=== PATIENT | female | born 1945 | race Caucasian/White ===

== ENCOUNTER → 2016-06-13 | Outpatient (CLI) | payer OTHER, BC ==
[~2016-06-13] MED LIST: ASPCH81 PO; METO50TA7 PO; PXLUNK
--- NOTE | 2016-06-13 12:41 | MAMMOGRAPHY REPORT ---
BILATERAL DIGITAL SCREENING MAMMOGRAM WITH CAD: 06/13/2016 TECHNIQUE: Current study was also evaluated with a Computer Aided Detection (CAD) system. Bilatera l CC and MLO views were obtained. COMPARISON: Comparison is made to exams dated: 06/05/2014 mammogram, 05/24/2012 mammogram, 06/09/2015 ma mmogram, 05/30/2013 mammogram, 05/19/2011 mammogram, and 05/17/2010 mammogram - [facility] enter. BREAST COMPOSITION: There are scattered areas of fibroglandular density in both breasts. FINDINGS: No suspicious masses, calcifications, or areas of architectural distortion are noted in e ither breast. There has been no significant interval change compared to prior exams. IMPRESSION: ACR BI-RADS CATEGORY 1: NEGATIVE There is no mammographic evidence of malignancy. A 1 year screening mammogram is recommended. The p atient will receive written notification of the results. Approximately 10% of breast cancers are not detected with mammography. A negative mammographic repor t should not delay biopsy if a clinically suggestive mass is present. Debbie Rust M.D. ah/:06/13/2016 12:25:19 Dramatic Agent: Juana HANCOCK(R)(M), [facility] letter sent: Normal 1/2 BI-RADS Code: ACR BI-RADS Category 1: Negative
== END | disposition home or self-care (01) ==
LOC: C.MAMM 08:50
PROVIDERS: ATTEND Obstetrics & Gynecology
DX: Z12.31 Encounter for screening mammogram for malignant neoplasm of breast (principal)

== ENCOUNTER → 2016-07-01 | Outpatient (CLI) | payer OTHER, BC | END | disposition home or self-care (01) | LOC: C.PAPS 15:45 | PROVIDERS: ATTEND Obstetrics & Gynecology | DX: Z01.419 Encounter for gynecological examination (general) (routine) without abnormal findings (principal) ==

== ENCOUNTER → 2017-04-21 | Outpatient (CLI) | payer OTHER, BC ==
[~2017-04-21] MED LIST changes: +OPTIRAY 320 IV PRN
--- NOTE | 2017-04-21 15:04 | DIAGNOSTIC IMAGING REPORT ---
ABD/PELVIS IV AND ORAL CONT CLINICAL HISTORY: 71 years-old Female presenting with MASS IN RIGHT LOWER ABDOMEN. TECHNIQUE: Multidetector CT of the abdomen and pelvis was performed after the administration of oral and intravenous contrast. IV contrast: 93 mL of Optiray 320. A dose lowering technique was used consistent with the principles of ALARA (as low as reasonably achievable). COMPARISON: None. CT DOSE (mGy.cm): The estimated cumulative dose is 272.20 mGy.cm. FINDINGS: Boiler Coverer Helper topogram: Unremarkable. Lung bases: Minimal basilar opacities, likely atelectasis. Normal heart size. No pericardial or pleural effusion. Liver: Normal morphology. Multiple well-defined hypodensities throughout the liver most compatible with hepatic cysts or hamartomas. Biliary: No intrahepatic or extrahepatic biliary ductal dilatation. Normal gallbladder. Pancreas: Normal. Spleen: Normal. Adrenal glands: Normal. Kidneys and ureters: Normal. No hydronephrosis. Bladder: Normal. Pelvic organs: Massively enlargement of the of the bilateral ovaries with multilobular solid and cystic masses. This exerts mass effect on the bladder and transiting sigmoid colon. The uterus is poorly delineated. Prominence of uterine and ovarian vasculature with dilatation of the gonadal veins. Bowel: Moderate stool burden in the transverse and right colon. The sigmoid colon is narrowed secondary to the large pelvic masses. These may involve the serosa of the sigmoid. No complete bowel obstruction. Small duodenal diverticulum at the pancreatic head suspected. Peritoneal cavity: Small amount of abdominal pelvic ascites. Evidence of peritoneal thickening and enhancement in the pelvis. Mild mesenteric infiltration. Infiltration of the liver hilum. No gross nodularity of the omentum. No free intraperitoneal gas. Lymph nodes: No enlarged lymph nodes in the abdomen or pelvis. Vasculature: Atherosclerosis of the normal caliber abdominal aorta. IVC patent. Abdominal wall: Normal. Musculoskeletal: Normal. IMPRESSION: 1. Large ovarian/pelvic masses consistent with ovarian malignancy. Peritoneal fluid, thickening, enhancement in the pelvis consistent with peritoneal carcinomatosis. No lymphadenopathy. 2. Hypodensities in the liver most consistent with hamartomas are hepatic cysts. No convincing evidence of metastatic disease to the solid viscera. The report will be called/faxed according to standard departmental protocol. Electronically signed by: Sancho Ascencio M.D. 04/21/2017 3:03 PM Dictated Date/Time: 04/21/2017 2:51 PM
== END | disposition home or self-care (01) ==
LOC: C.CTS 14:03
PROVIDERS: ATTEND Family Medicine
DX: R19.00 Intra-abdominal and pelvic swelling, mass and lump, unspecified site (principal); N83.9 Noninflammatory disorder of ovary, fallopian tube and broad ligament, unspecified; K76.9 Liver disease, unspecified

== ENCOUNTER → 2017-04-25 | Outpatient (CLI) | payer OTHER, BC ==
[~2017-04-25] MED LIST changes: -OPTIRAY 320 IV PRN
[2017-04-25 09:58] LABS: HEMATOCRIT 40.2 % (37-47); MEAN CELL VOLUME 98.8 fL (80-100); MEAN CORPUSCULAR HEMOGLOBIN 31.9 pg (25-34); MEAN CORPUSCULAR HGB CONC 32.3 g/dl (32-36); MEAN PLATELET VOLUME 9.9 fL (7.4-10.4); PLATELET COUNT 300 K/uL (130-400); RED BLOOD COUNT 4.07 M/uL (4.2-5.4); WHITE BLOOD COUNT 6.85 K/uL (4.8-10.8)
[2017-04-25 10:11] LABS: ALT/SGPT 58 U/L (12-78); AST/SGOT 47 U/L (15-37); BLOOD UREA NITROGEN 14 mg/dl (7-18); BUN/CREATININE RATIO 22.3 (10-20); CALCIUM 9.1 mg/dl (8.5-10.1); CARBON DIOXIDE 31 mmol/L (21-32); CHLORIDE 105 mmol/L (98-107); CREATININE 0.61 mg/dl (0.60-1.20); GLUCOSE 87 mg/dl (70-99); POTASSIUM 4.6 mmol/L (3.5-5.1); SODIUM 139 mmol/L (136-145)
[2017-04-25 10:14] LABS: ALB/GLOB RATIO 0.9 (0.9-2); ALKALINE PHOSPHATASE 63 U/L (45-117)
== END | disposition home or self-care (01) ==
LOC: C.LAB 09:16
PROVIDERS: ATTEND Obstetrics & Gynecology
DX: R14.0 Abdominal distension (gaseous) (principal); R93.5 Abnormal findings on diagnostic imaging of other abdominal regions, including retroperitoneum

== ENCOUNTER 2017-06-22 08:10 | Day surgery (SDC) | payer OTHER, BC ==
[2017-06-14 15:16] VITALS: BMI 19.0
[~2017-06-22] VITALS: Ht 167.6 cm; Wt 55.5 kg
[~2017-06-22 08:10] MED LIST changes: +ASCO100T4 PO; -ASPCH81 PO; +ASTRAGALUS PO; +B-COTAB18 PO; +BLACK COHOSH PO; +CALCIUM CARBONATE PO; +CHOL1000 PO; +COD1000C PO; +COLLAGEN PO; +GLUCTAB7 PO; +HYALURONIC ACID PO; +LACTATED RINGER'S 1000ML 1,000 ML IV SCH; +LYSI1TAB2 PO; +MAGNESIUM SULFATE PO; -METO50TA7 PO; +MISCCAP80 PO; +OMEG10007 PO; +PHYT100T PO; -PXLUNK; +SELENIUM PO; +VITA400C28 PO; +[UNRECOGNIZED DRUG - CODE] PEG; +[UNRECOGNIZED DRUG - CODE] TP; +[UNRECOGNIZED DRUG - OTHER] PO
[2017-06-22] MEDS ORDERED: BLACK CURRENT SEED (08:42)
[2017-06-22 08:46] VITALS: BP 109/70; PULSE 88; TEMP 37; O2SAT 98; Ht 167.6 cm; Wt 55.5 kg
--- NOTE | 2017-06-22 09:45 | History & Physical Bridge Note ---
H&P Re-Evaluation Bridge Note: I have examined the patient, reviewed the History & Physical and in the interval since the performance of the History & Physical I have noted the following changes of clinical significance: No changes noted SO at bedside all questions answered pt is right handed
[2017-06-22] MEDS ORDERED: BACITRACIN 50000 UNIT VIAL ONE (09:55)
[2017-06-22] MEDS ORDERED: LIDOCAINE HCL 1% 20 ML VIAL ONE (09:55)
[2017-06-22] MEDS ORDERED: MIDAZOLAM HCL 1 MG/ML 2ML VIAL ONE (10:13)
[2017-06-22] MEDS ORDERED: CEFAZOLIN SOD 1 GM VIAL ONE (10:28)
[2017-06-22] MEDS ORDERED: ATROPINE SULFATE 0.1 MG/ML 5ML SYR IV PRN (10:45)
[2017-06-22] MEDS ORDERED: EpHEDrine SULFATE INJ 50 MG/ML AMP IV PRN (10:45)
--- NOTE | 2017-06-22 10:46 | [facility] Post Operative Brief Note ---
Immediate Operative Summary Operative Date Jun 22, 2017. Pre-Operative Diagnosis Ovarian Carcinosarcoma, need for chemotherapy Post-Operative Diagnosis Same as preoperative Procedure(s) Performed Insertion of A-Port, Left Subclavian MRI compatible port Surgeon Dr. Brian Van Stage Set Designer Surgeon(s) None Estimated Blood Loss 4ml Findings See Below as preop Specimens None Anesthesia Type MAC
--- NOTE | 2017-06-22 10:59 | Discharge Instructions ---
Discharge Instructions Date of Service Jun 22, 2017. Visit Reason for Visit: Ovarian Cancer port insertion Discharge Discharge Diagnosis / Problem: s/p a port placement Discharge Goals Goal(s): Decrease discomfort Activity Recommendations Activity Limitations: per Instructions/Follow-up section (may shower keep dressing dry for 24-48 hrs) Lifting Limitations: no more than 10 pounds Exercise/Sports Limitations: gradually increase as tolerated May Resume Sexual Activity: when tolerated Driving or Machine Use: resume 3 days after discharge Anesthesia . Post Anesthesia Instructions: If you have had General Anesthesia or IV Sedation: * Do not drive today. * Resume driving when surgeon permits. * Do not make important decisions or sign legal documents today. * Call surgeon for: 1. Temperature elevations greater than 101 degrees F. 2. Uncontrollable pain. 3. Excessive bleeding. 4. Persistent nausea and vomiting. 5. Medication intolerance (nausea, vomiting or rash). * For nausea and vomiting use only clear liquids such as: tea, soda, bouillon until nausea subsides, then gradually increase diet as tolerated. * If you have any concerns or questions, call your surgeon's office. If physician is unavailable and it is an emergency, call 911 or go to the nearest emergency room. . Instructions / Follow-Up Instructions / Follow-Up call [phone] for any problems return office 1 week as needed Diet Recommendations Recommended Home Diet: resume previous diet Procedures Procedures Performed: Insertion of A-Port, Left Subclavian MRI compatible port Pending Studies Studies pending at discharge: no Medical Emergencies . Who to Call and When: Medical Emergencies: If at any time you feel your situation is an emergency, please call 911 immediately. . Non-Emergent Contact Non-Emergency issues call your: Primary Care Provider . . "Provider Documentation" section prepared by Brian Van. .
[2017-06-22] MEDS ORDERED: IBUPROFEN 600 MG TAB PO PRN (11:00)
[2017-06-22] MEDS ORDERED: OXYCODONE/ACETAMINOPHEN 5-325 TAB PO PRN ×2 (11:00)
--- NOTE | 2017-06-22 11:17 | DIAGNOSTIC IMAGING REPORT ---
CHEST ONE VIEW PORTABLE CLINICAL HISTORY: post op LEFT A-PORT CATHETER PLACEMENT COMPARISON STUDY: January 2008 FINDINGS: The cardiac and mediastinal contours remain stable. There is a left subclavian A-Port catheter. There is no pneumothorax. The tip projects at or just above the atriocaval junction. There is no focal pulmonary consolidation. There are no pleural effusions.[ IMPRESSION: No evidence of pneumothorax status post placement of a left subclavian A-Port catheter. Electronically signed by: Leon Hernandez M.D. 06/22/2017 11:15 AM Dictated Date/Time: 06/22/2017 11:14 AM
--- NOTE | 2017-06-22 11:20 | Anesthesiology Progress Note ---
Anesthesia Post Op Note Date & Time Jun 22, 2017 at 11:20 Vital Signs Pain Intensity: 0 Vital Signs Past 12 Hours Date Time Temp Pulse Resp B/P (MAP) Pulse Ox O2 Delivery O2 Flow Rate FiO2 06/22/17 11:10 36.7 77 18 135/71 98 Room Air 06/22/17 11:00 78 18 137/70 99 Room Air 06/22/17 10:51 37. 76 18 140/75 98 Room Air 06/22/17 08:46 37 88 16 109/70 (83) 98 Room Air Notes Mental Status: alert / awake / arousable, participated in evaluation Pt Amnestic to Procedure: Yes Nausea / Vomiting: adequately controlled Pain: adequately controlled Airway Patency, RR, SpO2: stable & adequate BP & HR: stable & adequate Hydration State: stable & adequate Anesthetic Complications: no major complications apparent
[2017-06-22 11:30] VITALS: BP 116/67; PULSE 75; TEMP 36.9; O2SAT 97
--- NOTE | 2017-06-22 11:30 | OPERATIVE REPORT ---
DATE OF OPERATION: 06/22/2017 SURGEON: Dr. Van. PREOPERATIVE DIAGNOSIS: Ovarian cancer, need for chemotherapy. POSTOPERATIVE DIAGNOSIS: Same. PROCEDURE: MRI compatible port through the left subclavian. SUMMARY: The patient was brought into the operating room theater. The left chest and neck were prepped with Betadine scrubbing solution and properly draped. Systemic antibiotic was given. A roll had been placed underneath her shoulders. More local anesthetic was used to infiltrate at the angle of the clavicle where the patient was quite thin. We easily accessed the vein without going too much in the subcu. At this point, a guidewire fluoroscopically positioned in the superior vena cava. At this point, more local was used about an 1-1/2 inch below this, sufficient enough to create a pocket, then we denuded the subcutaneous tissue so we could palpate the reservoir through the skin easily. At this point, we then placed a guidewire that we had placed percutaneously and brought it into the previously made pocket where under Trendelenburg position and fluoroscopically we placed a 7-Somali dilator, followed by the catheter, and we placed it in the right atrial area. At this point, we then took the peel away sheath out, noticed that the jason at the skin level from the catheter interposition was about 25 cm. We then placed the black bolster, cut the catheter appropriately and placed it on the reservoir, secured with the black bolster. We aspirated and flushed easily. We then reimaged the system. With the reservoir in pocket, we had sutured it to keep from rotating with 2-0 nylon, it was in the right atrial superior vena cava. We aspirated and flushed through the skin easily. We then closed the wound in multiple layers with 2-0 Vicryl, 4-0 Monocryl. Steri-Strips applied. Prior to leaving the room, we re-accessed the reservoir, aspirated and flushed quite easily. The procedure was tolerated well. Estimated blood loss approximately 4 mL. The patient was taken to recovery room in good condition. I attest to the content of the Intraoperative Record and any orders documented therein. Any exceptions are noted below. MTDD
[2017-06-22 12:00] VITALS: BP 131/62; PULSE 72; TEMP 36.7; O2SAT 100
[2017-06-22] MEDS ORDERED: SODIUM CHLORIDE 0.9% 1000ML 1,000 ML IV SCH (12:22)
== END 2017-06-22 12:10 | disposition home or self-care (01) ==
LOC: C.ACU 08:10
PROVIDERS: ATTEND Surgery
DX: C56.9 Malignant neoplasm of unspecified ovary (principal); N95.1 Menopausal and female climacteric states; M85.80 Other specified disorders of bone density and structure, unspecified site; Z90.710 Acquired absence of both cervix and uterus; Z90.722 Acquired absence of ovaries, bilateral; Z82.49 Family history of ischemic heart disease and other diseases of the circulatory system; Z87.891 Personal history of nicotine dependence; Z88.0 Allergy status to penicillin; Z90.89 Acquired absence of other organs; Z90.49 Acquired absence of other specified parts of digestive tract

== ENCOUNTER → 2017-09-11 | Outpatient (CLI) | payer OTHER, BC ==
[~2017-09-11] MED LIST changes: +BLACK CURRENT SEED; -LACTATED RINGER'S 1000ML 1,000 ML IV SCH; -[UNRECOGNIZED DRUG - CODE] PEG
[2017-09-11 09:16] LABS: BASO % 1.5 %; BASO ABS # 0.04 K/uL (0-0.2); EOS % 1.8 %; EOS ABS # 0.05 K/uL (0-0.5); HEMATOCRIT 35.7 % (37-47); HEMOGLOBIN 11.7 g/dL (12.0-16.0); LYMPH % 35.9 %; LYMPH ABS # 0.98 K/uL (1.2-3.4); MEAN CELL VOLUME 96.7 fL (80-100); MEAN CORPUSCULAR HEMOGLOBIN 31.7 pg (25-34); MEAN CORPUSCULAR HGB CONC 32.8 g/dl (32-36); MEAN PLATELET VOLUME 8.7 fL (7.4-10.4); MONO % 12.5 %; MONO ABS # 0.34 K/uL (0.11-0.59); NEUT % 48.3 %; NEUT ABS # 1.32 K/uL (1.4-6.5); PLATELET COUNT 120 K/uL (130-400); RED CELL DISTRIBUTION WIDTH SD 63.3 fL (36.4-46.3); WHITE BLOOD COUNT 2.73 K/uL (4.8-10.8)
[2017-09-11 09:34] LABS: ALBUMIN 3.6 gm/dl (3.4-5.0); ALT/SGPT 28 U/L (12-78); AST/SGOT 23 U/L (15-37); BLOOD UREA NITROGEN 12 mg/dl (7-18); CALCIUM 8.8 mg/dl (8.5-10.1); CARBON DIOXIDE 28 mmol/L (21-32); CREATININE 0.63 mg/dl (0.60-1.20); GLUCOSE 96 mg/dl (70-99); POTASSIUM 4.6 mmol/L (3.5-5.1); SODIUM 141 mmol/L (136-145)
[2017-09-11 09:37] LABS: ALKALINE PHOSPHATASE 45 U/L (45-117); TOTAL PROTEIN 6.8 gm/dl (6.4-8.2)
== END | disposition home or self-care (01) ==
LOC: C.LABSPEC 09:08
PROVIDERS: ATTEND Internal Medicine Hematology & Oncology
DX: C56.1 Malignant neoplasm of right ovary (principal)

== ENCOUNTER → 2017-11-27 | Outpatient (CLI) | payer OTHER, BC ==
[~2017-11-27] MED LIST changes: +ELQ25 PO; +GFNSR600 PO; +LVQ750 PO; +MGNO400 PO; +TPRSR25 PO
[2017-11-27 10:59] LABS: BASO % 0.9 %; BASO ABS # 0.03 K/uL (0-0.2); EOS % 7.6 %; EOS ABS # 0.25 K/uL (0-0.5); HEMATOCRIT 34.5 % (37-47); HEMOGLOBIN 11.3 g/dL (12.0-16.0); LYMPH ABS # 1.06 K/uL (1.2-3.4); MEAN CELL VOLUME 106.8 fL (80-100); MEAN CORPUSCULAR HGB CONC 32.8 g/dl (32-36); MEAN PLATELET VOLUME 9.9 fL (7.4-10.4); MONO % 11.5 %; MONO ABS # 0.38 K/uL (0.11-0.59); NEUT ABS # 1.59 K/uL (1.4-6.5); PLATELET COUNT 202 K/uL (130-400); RED CELL DISTRIBUTION WIDTH CV 14.3 % (11.5-14.5); RED CELL DISTRIBUTION WIDTH SD 55.2 fL (36.4-46.3); WHITE BLOOD COUNT 3.31 K/uL (4.8-10.8)
== END | disposition home or self-care (01) ==
LOC: C.LABSPEC 10:29
PROVIDERS: ATTEND Internal Medicine Hematology & Oncology
DX: C56.1 Malignant neoplasm of right ovary (principal)

== ENCOUNTER → 2017-12-04 | Outpatient (CLI) | payer OTHER, BC ==
[2017-12-04 10:56] LABS: BASO % 0.8 %; BASO ABS # 0.03 K/uL (0-0.2); EOS % 13.9 %; EOS ABS # 0.51 K/uL (0-0.5); HEMATOCRIT 34.6 % (37-47); HEMOGLOBIN 11.3 g/dL (12.0-16.0); LYMPH % 29.6 %; LYMPH ABS # 1.09 K/uL (1.2-3.4); MEAN CELL VOLUME 106.1 fL (80-100); MEAN CORPUSCULAR HEMOGLOBIN 34.7 pg (25-34); MEAN CORPUSCULAR HGB CONC 32.7 g/dl (32-36); MEAN PLATELET VOLUME 10.1 fL (7.4-10.4); MONO % 9.5 %; MONO ABS # 0.35 K/uL (0.11-0.59); NEUT % 46.2 %; PLATELET COUNT 205 K/uL (130-400); RED CELL DISTRIBUTION WIDTH CV 13.7 % (11.5-14.5); RED CELL DISTRIBUTION WIDTH SD 53.1 fL (36.4-46.3); WHITE BLOOD COUNT 3.68 K/uL (4.8-10.8)
[2017-12-04 11:15] LABS: ALBUMIN 3.5 gm/dl (3.4-5.0); ALT/SGPT 23 U/L (12-78); AST/SGOT 19 U/L (15-37); BLOOD UREA NITROGEN 13 mg/dl (7-18); CALCIUM 8.8 mg/dl (8.5-10.1); CARBON DIOXIDE 28 mmol/L (21-32); CREATININE 0.63 mg/dl (0.60-1.20); GLUCOSE 102 mg/dl (70-99); POTASSIUM 4.3 mmol/L (3.5-5.1); SODIUM 138 mmol/L (136-145)
[2017-12-04 11:19] LABS: ALKALINE PHOSPHATASE 49 U/L (45-117); TOTAL PROTEIN 6.9 gm/dl (6.4-8.2)
== END | disposition home or self-care (01) ==
LOC: C.LABSPEC 09:57
PROVIDERS: ATTEND Internal Medicine Hematology & Oncology
DX: C56.1 Malignant neoplasm of right ovary (principal)

== ENCOUNTER → 2017-12-05 | Outpatient (CLI) | payer OTHER, BC ==
[~2017-12-05] MED LIST changes: +OPTIRAY 320 IV PRN
--- NOTE | 2017-12-05 16:37 | DIAGNOSTIC IMAGING REPORT ---
ABD/PELVIS IV AND ORAL CONT CLINICAL HISTORY: 72 years-old Female presenting with OVARIAN CA. TECHNIQUE: Multidetector CT of the abdomen and pelvis was performed after the administration of oral and intravenous contrast. IV contrast: 117 mL of Optiray 320. A dose lowering technique was used consistent with the principles of ALARA (as low as reasonably achievable). COMPARISON: 04/21/2017. CT DOSE (mGy.cm): The estimated cumulative dose is 476.35 mGy.cm. FINDINGS: Security Investigator topogram: Left subclavian Mediport terminates in the lower SVC. Surgical clips project over the right pelvis. Lung bases: Minimal basilar opacities, likely atelectasis. Normal heart size. No pericardial or pleural effusion. Liver: Normal morphology. Multiple hypodensities throughout the liver, which are well-defined and unchanged from prior exam, likely hepatic cysts or hamartomas. Patent hepatic vasculature. Biliary: No intrahepatic or extrahepatic biliary ductal dilatation. Gallbladder decompressed. Pancreas: Normal. Spleen: Normal. Adrenal glands: Normal. Kidneys and ureters: Normal. No hydronephrosis. Bladder: The configuration of the bladder suggests ligamentous laxity. Bladder otherwise normal. Pelvic organs: Uterus surgically absent. Postsurgical changes of resection of the previously noted large right adnexal mass. A cystic structure in the left adnexa measuring 2.1 cm (series 6 image 340). This is of uncertain etiology and may be postsurgical. Bowel: Moderate stool burden in the right and transverse colon. No bowel obstruction. Postsurgical changes of appendectomy suspected. Peritoneal cavity: No free fluid or intraperitoneal gas. Possible small soft tissue nodule in the right pelvic sidewall (series 6 image 315), measuring 7 mm. This alternatively may represent a small lymph node. Lymph nodes: No enlarged lymph nodes in the abdomen or pelvis. Vasculature: Atherosclerosis of the normal caliber abdominal aorta. IVC patent. Abdominal wall: Postsurgical changes of the infraumbilical ventral abdominal wall. Musculoskeletal: Degenerative changes of the spine. No destructive osseous lesion. IMPRESSION: 1. Postsurgical changes of bilateral salpingo-oophorectomy and hysterectomy. 2.1 cm cystic left adnexal lesion is of uncertain etiology. This may be postsurgical or representing either a seroma or lymphocele, however, residual disease cannot be excluded. Similarly, a subcentimeter soft tissue right pelvic sidewall nodule is also indeterminate and may either represent residual disease or a small lymph node. Attention on follow-up. No other evidence of metastatic disease in the abdomen or pelvis are no lymphadenopathy. Electronically signed by: Sancho Ascencio M.D. 12/05/2017 4:36 PM Dictated Date/Time: 12/05/2017 4:28 PM
--- NOTE | 2017-12-05 16:47 | DIAGNOSTIC IMAGING REPORT ---
CHEST CT WITH CONTRAST CT DOSE: HISTORY: OVARIAN CA TECHNIQUE: Multiaxial CT images of the chest were performed following the intravenous administration of contrast. A dose lowering technique was utilized adhering to the principles of ALARA. COMPARISON: Chest 06/22/2017. FINDINGS: The central airways are patent. No pleural effusions. No pneumothorax. Mild biapical pleural-parenchymal scarring which is partially calcified. Linear density within the base of the left lower lobe favor scarring or atelectasis. No suspicious pulmonary nodules. No suspicious lytic or blastic osseous lesions. A left subclavian Port-A-Cath terminates in the distal SVC. Scattered mediastinal and bilateral hilar lymph nodes measure subcentimeter in short axis diameter. Dominant right hilar lymph node measures 7 mm in short axis diameter. Therefore, these do not meet CT criteria for pathologic involvement. The central pulmonary arteries are patent. Normal caliber thoracic aorta with no evidence for dissection. The heart is normal in size. IMPRESSION: No evidence for metastatic disease within the chest. Please refer to the dedicated abdomen and pelvis CT performed the same day for further evaluation of the abdominal structures. Electronically signed by: Ike Brar M.D. 12/05/2017 4:46 PM Dictated Date/Time: 12/05/2017 4:39 PM
== END | disposition home or self-care (01) ==
LOC: C.CTS 15:20
PROVIDERS: ATTEND Internal Medicine Hematology & Oncology
DX: C56.1 Malignant neoplasm of right ovary (principal)

== ENCOUNTER 2018-05-21 17:07 | Inpatient (IN) ==
[2018-05-21] MEDS ORDERED: ONDANSETRON INJ 2 MG/ML 2 ML VIAL IV STA (17:21)
[2018-05-21] MEDS ORDERED: SODIUM CHLORIDE 0.9% 1000ML 1,000 ML IV SCH (17:30)
--- NOTE | 2018-05-21 17:55 | Emergency Department Note ---
Entered by Corinne Cowart acting as a scribe for Garry Reid DO History of Present Illness General Chief complaint: GI Assessment Stated complaint: BOWEL BLOCKAGE Source: patient Limitations: no limitations History of Present Illness Provider complaint: GI pain Location: abdomen Maximum Pain Intensity: 3 Associated symptoms: + nausea/vomiting (nausea, no vomiting ) and + other (+ swelling in legs); no fever/chills The patient is a 72 year old female who presents to the Emergency Room with complaints of GI pain. The patient states that she has nausea and swelling in bilateral legs. The patient denies fevers, chills, or vomiting. The patient states that she was seen by the hospice nurse earlier and the nurse stated that the patient go to the ED. The patient states that she was given MiraLAX and edemas for her constipation but states that those did not relieve her. The patient states that she had fluid taken out of her abdomen 4 days ago and was told that her bowels were full. The patient states that she has a history of a liver tumor. Home Medications Home Medications Medication Instructions Recorded Confirmed Type lactobacillus combination no.4 3,000 mmu cells PO TIDM 03/05/18 05/21/18 History [Probiotic] melatonin 1 mg PO HS 03/05/18 05/21/18 History metoprolol succinate 25 mg PO QAM 03/05/18 05/21/18 History dexlansoprazole [Dexilant] 60 mg PO QAM 05/21/18 05/21/18 History ondansetron HCl 8 mg PO TID 05/21/18 05/21/18 History tramadol 100 mg PO Q6H 05/21/18 05/21/18 History Allergies Allergy/AdvReac Type Severity Reaction Status Date / Time Penicillins Allergy Mild ARM Verified 05/17/18 13:00 SWELLED UP Past Med/Surg History Social History Current Living Situation: Alone Feels Safe at Home: Yes Smoking Status: Former smoker Do You Dip or Chew Tobacco: No Smoking End Date: > 40 years ago Hx Alcohol Use: No Hx Substance Use: No Beliefs That Will Affect Care: None Preferred Language: Somali Communication Ability: Effective Drawing In Hand Required: No Review of Systems See HPI for pertinent positives & negatives. and A total of 10 systems reviewed and were otherwise negative Physical Exam Vital Signs Vital Signs - 24 hr 05/21/18 17:10 05/21/18 18:58 05/21/18 19:58 Temperature 36.4 C L Temperature Source Oral Sepsis Recent Fever Within 48 Hours No Sepsis New/Unexplained Change in Mental Status No Sepsis Action Taken by Nursing No Action Required Pulse Rate 100 H Pulse Rate [Finger] 78 Respiratory Rate 16 20 Blood Pressure 113/66 Blood Pressure [Right Arm] 133/67 Blood Pressure Mean 81 Blood Pressure Mean [Right Arm] 89 Pulse Oximetry 97 98 Oxygen Delivery Method Room Air Room Air GENERAL: Patient is awake alert in no acute distress patient is resting comfortably and showing no signs of anxiety EYES: The conjunctivae are clear. The pupils are round and reactive. EARS, NOSE, MOUTH AND THROAT: The nose is without any evidence of any deformity. Mucous membranes are moist tongue is midline NECK: The neck is nontender and supple. RESPIRATORY: Normal respiratory effort is noted there is no evidence of wheezing rhonchi or rales CARDIOVASCULAR: Regular rate and rhythm noted there no murmurs rubs or gallops normal S1 normal S2 GASTROINTESTINAL: The abdomen is moderately distended and diffusely tender. There is significant paddle megaly and tenderness to palpation over the liver. MUSCULOSKELETAL/EXTREMITIES: There is no evidence of gross deformity full range of motion is noted in the hips and shoulders SKIN: There is no obvious evidence of any rash. Pedal edema was noted bilaterally right greater than left. NEUROLOGIC: Patient is awake alert and oriented x3. Course 1721: Past medical records reviewed. The patient was evaluated in room B3B, and a complete history and physical examination were performed. 1850: I discussed the patient's case with Dr. Donahue- Hematology/oncology. He states that he is going to evaluate the patient for further hospitalization. Consultations Consultation #1: Dr. Donahue- Hematology/oncology Time: 18:50 Administered Medications Discontinued Medications Sodium Chloride (Nss 1000ml) 1,000 mls @ 999 mls/hr IV .Q1H1M NEHA Stop: 05/21/18 18:30 Last Infusion: 05/21/18 18:49 Dose: 0 mls/hr Admin: 05/21/18 17:49 Dose: 999 mls/hr Medical Decision Making Differential Diagnosis Differential diagnosis: Etiologies such as biliary colic, cholecystitis, hepatitis, perihepatitis, pancreatitis, cardiac disease, pancreatitis, gastritis, peptic ulcer disease, appendicitis, ovarian cyst, ovarian torsion, ectopic , pelvic inflammatory disease, cystitis, diverticulitis, mesenteric ischemia, inflammatory bowel disease, ileus, bowel obstruction, aortic pathology, shingles , as well as others were considered. Medical Records Attestation: I reviewed the patient's medical records. Home Medications Current Medication List: was personally reviewed by me Laboratory Data Attestation: I reviewed the patient's lab results. Result diagrams: 05/21/18 17:50 05/21/18 17:50 Lab Results 05/21/18 05/21/18 05/21/18 Range/Units 17:50 17:50 18:30 WBC 8.83 (4.8-10.8) K/uL RBC 3.18 L (4.2-5.4) M/uL Hgb 9.8 L (12.0-16.0) g/dL Hct 30.9 L (37-47) % MCV 97.2 (80-100) fL MCH 30.8 (25-34) pg MCHC 31.7 L (32-36) g/dL RDW Std Deviation 63.0 H (36.4-46.3) fL RDW Coeff of Briseyda 17.9 H (11.5-14.5) % Plt Count 357 (130-400) K/uL MPV 8.4 (7.4-10.4) fL Immature Gran % (Auto) 0.3 % Neut % (Auto) 81.8 % Lymph % (Auto) 5.2 % [place] % (Auto) 12.5 % Eos % (Auto) 0.0 % Baso % (Auto) 0.2 % Immature Gran # (Auto) 0.03 H (0.00-0.02) K/uL Neut # (Auto) 7.22 H (1.4-6.5) K/uL Lymph # (Auto) 0.46 L (1.2-3.4) K/uL [place] # (Auto) 1.10 H (0.11-0.59) K/uL Eos # (Auto) 0.00 (0-0.5) K/uL Baso # (Auto) 0.02 (0-0.2) K/uL Sodium 125 L (136-145) mmol/L Potassium 5.2 H (3.5-5.1) mmol/L Chloride 91 L (98-107) mmol/L Carbon Dioxide 26 (21-32) mmol/L Anion Gap 9.0 (3-11) BUN 17 (7-18) mg/dl Creatinine 0.85 (0.6-1.2) mg/dl Est Cr Clr Drug Dosing Not Reportable Est GFR ( Amer) 79.3 Est GFR (Non-Af Amer) 68.5 BUN/Creatinine Ratio 19.6 (10-20) Glucose 78 (70-99) mg/dl Calcium 8.8 (8.5-10.1) mg/dl Total Bilirubin 0.4 (0.2-1) mg/dl AST 33 (15-37) U/L ALT 18 (12-78) U/L Alkaline Phosphatase 101 (45-117) U/L Total Protein 6.1 L (6.4-8.2) gm/dl Albumin 1.9 L (3.4-5.0) gm/dl Globulin 4.2 H (2.5-4.0) gm/dl Albumin/Globulin Ratio 0.5 L (0.9-2) Lipase 41 L (73-393) U/L Urine Color Dark Yellow Urine Appearance Clear (Clear) Urine pH 7.5 (4.5-7.5) Ur Specific [place] 1.018 (1.000-1.030) Urine Protein Negative (Negative) Urine Glucose (UA) Negative (Negative) Urine Ketones Trace H (Negative) Urine Blood Negative (Negative) Urine Nitrite Negative (Negative) Urine Bilirubin Negative (Negative) Urine Urobilinogen Negative (Negative) Ur Leukocyte Esterase Trace H (Negative) Urine WBC (Auto) 1-5 (0-5) /hpf Urine RBC (Auto) 0-4 (0-4) /hpf U Hyaline Cast (Auto) 1-5 (0-5) /lpf U Epithel Cells (Auto) 20-30 H (0-5) /lpf Urine Bacteria (Auto) Negative (Negative) Imaging Data Radiologist's Impression: Radiology results as stated below per my review and the radiologist's interpretation: CT SCAN OF THE ABDOMEN AND PELVIS WITHOUT CONTRAST CLINICAL HISTORY: constipation DIFFUSE ABDOMINAL PAIN COMPARISON STUDY: 04/11/2018 TECHNIQUE: CT scan of the abdomen and pelvis was performed from the lung bases to the proximal femurs. Images are reviewed in the axial, sagittal, and coronal planes. IV contrast was not administered for this examination. A dose lowering technique was utilized adhering to the principles of ALARA. CT DOSE: 533.98 mGy.cm FINDINGS: Lower chest: There is a moderate right pleural effusion and small left pleural effusion. There are compressive atelectatic changes within the right lower lobe. Liver: There are scattered hypodense hepatic lesions likely representing cysts. There is a 10 cm right subdiaphragmatic complex cystic mass deforming the superior margin the liver. Gallbladder: Unremarkable. Spleen: Normal in size and attenuation. Pancreas: Unremarkable. Adrenal glands: Unremarkable. Kidneys: The unenhanced kidneys are normal in size without hydronephrosis. There is no contour deforming renal mass lesion. No renal calculi are identified. Bowel: There is significant fecal retention. There is extrinsic compression of the sigmoid colon which likely explains the significant fecal retention. The colon measures up to 8 cm in diameter. Peritoneum: There is ascites. There is a very large complex partially solid and cystic mass arising from the pelvis measuring 17.5 x 19.8 x 20.6 cm. There are multiple peritoneal implants including a lower anterior pelvic implant measuring 4.3 cm in diameter. Vasculature: The abdominal aorta is normal in course and caliber. Adenopathy: None. Pelvic viscera: The uterus and ovaries are not visualized separate from the large pelvic mass. The patient may be status post a prior hysterectomy Skeletal structures: There are bilateral sacral insufficiency fractures. The study is limited by the absence of oral and intravenously administered contrast. IMPRESSION: 1. 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 Low volume ascites 3. Interval development of a moderate right pleural effusion and small left pleural effusion 4. Significant fecal retention, likely secondary to sigmoid compression from the very large pelvic mass 5. Bilateral sacral insufficiency fractures Electronically signed by: Leon Hernandez M.D. 05/21/2018 6:39 PM Blood Pressure Blood Pressure Findings: Normal blood pressure MDM Narrative The patient is a 72-year-old female who presented to the emergency department for an evaluation of overwhelming constipation. The patient has a history of a pelvic mass because of ovarian cancer. She also has metastatic disease with ascites. She is had a prolonged period of time without having a bowel movement. The patient's CAT scan does show severe fecal impaction. The area of concern is where the sigmoid colon is compressed by the pelvic mass. I discussed the patient's laboratory and radiographic studies with her. I also discussed her case with the on-call [facility] hospitalist. They have agreed to evaluate patient in the emergency department for further management and disposition. Impression & Plan Ovarian cancer, Hyponatremia, Fecal impaction Discharge Plan Visit Data Chief Complaint: GI Assessment Stated Complaint: BOWEL BLOCKAGE ED Provider: Garry Reid Discharge Problem: Ovarian cancer, Hyponatremia, Fecal impaction Forms Stand Alone Forms: My [facility] Prescriptions Prescriptions: No Action metoprolol succinate 25 mg tablet extended release 24 hr 25 mg PO QAM RF: 0 melatonin 1 mg Tablet 1 mg PO HS RF: 0 lactobacillus combination no.4 [Probiotic] 3 billion cell Capsule 3,000 mmu cells PO TIDM RF: 0 ondansetron HCl 8 mg tablet 8 mg PO TID RF: 0 tramadol 50 mg tablet 100 mg PO Q6H RF: 0 dexlansoprazole [Dexilant] 60 mg capsule,biphase delayed releas 60 mg PO QAM RF: 0 Referrals Referrals: Rom Thornton [Primary Care Provider] - The scribe's documentation has been prepared under my direction and personally reviewed by me in its entirety. I confirm that the note above accurately reflects all work, treatment, procedures, and medical decision making performed by me.
[2018-05-21 18:09] LABS: Basophils # (auto) 0.02 K/uL (0-0.2); Basophils % (auto) 0.2 %; Hematocrit (blood only) 30.9 % (37-47); Hemoglobin 9.8 g/dL (12.0-16.0); Immature Granulocytes # (auto) 0.03 K/uL (0.00-0.02); Immature Granulocytes % (auto) 0.3 %; Lymphocytes # (auto) 0.46 K/uL (1.2-3.4); Lymphocytes % (auto) 5.2 %; Mean Corpuscular Hgb Conc 31.7 g/dL (32-36); Mean Corpuscular Volume 97.2 fL (80-100); Mean Platelet Volume 8.4 fL (7.4-10.4); Monocytes % (auto) 12.5 %; Neutrophils # (auto) 7.22 K/uL (1.4-6.5); Neutrophils % (auto) 81.8 %; Platelet Count 357 K/uL (130-400); RDW Coefficient of Variation 17.9 % (11.5-14.5); Red Blood Count 3.18 M/uL (4.2-5.4); White Blood Count 8.83 K/uL (4.8-10.8)
[2018-05-21 18:30] LABS: Albumin Level 1.9 gm/dl (3.4-5.0); BUN Creatinine Ratio 19.6 (10-20); Blood Urea Nitrogen 17 mg/dl (7-18); Calcium 8.8 mg/dl (8.5-10.1); Carbon Dioxide 26 mmol/L (21-32); Chloride 91 mmol/L (98-107); Est GFR (African American) 79.3; Est GFR (Non-African American) 68.5; Glucose 78 mg/dl (70-99); Potassium 5.2 mmol/L (3.5-5.1); Sodium 125 mmol/L (136-145)
[2018-05-21 18:33] LABS: Alanine Aminotransferase 18 U/L (12-78); Albumin Globulin Ratio 0.5 (0.9-2); Alkaline Phosphatase 101 U/L (45-117); Aspartate Aminotransferase 33 U/L (15-37); Bilirubin,Total 0.4 mg/dl (0.2-1); Globulin 4.2 gm/dl (2.5-4.0); Total Protein 6.1 gm/dl (6.4-8.2)
--- NOTE | 2018-05-21 18:42 | CT Scan Report ---
CT SCAN OF THE ABDOMEN AND PELVIS WITHOUT CONTRAST CLINICAL HISTORY: constipation DIFFUSE ABDOMINAL PAIN COMPARISON STUDY: 04/11/2018 TECHNIQUE: CT scan of the abdomen and pelvis was performed from the lung bases to the proximal femurs . Images are reviewed in the axial, sagittal, and coronal planes. IV contrast was not administered fo r this examination. A dose lowering technique was utilized adhering to the principles of ALARA. CT DOSE: 533.98 mGy.cm FINDINGS: Lower chest: There is a moderate right pleural effusion and small left pleural effusion. There are co mpressive atelectatic changes within the right lower lobe. Liver: There are scattered hypodense hepatic lesions likely representing cysts. There is a 10 cm righ t subdiaphragmatic complex cystic mass deforming the superior margin the liver. Gallbladder: Unremarkable. Spleen: Normal in size and attenuation. Pancreas: Unremarkable. Adrenal glands: Unremarkable. Kidneys: The unenhanced kidneys are normal in size without hydronephrosis. There is no contour deform ing renal mass lesion. No renal calculi are identified. Bowel: There is significant fecal retention. There is extrinsic compression of the sigmoid colon whic h likely explains the significant fecal retention. The colon measures up to 8 cm in diameter. Peritoneum: There is ascites. There is a very large complex partially solid and cystic mass arising f rom the pelvis measuring 17.5 x 19.8 x 20.6 cm. There are multiple peritoneal implants including a lo wer anterior pelvic implant measuring 4.3 cm in diameter. Vasculature: The abdominal aorta is normal in course and caliber. Adenopathy: None. Pelvic viscera: The uterus and ovaries are not visualized separate from the large pelvic mass. The pa tient may be status post a prior hysterectomy Skeletal structures: There are bilateral sacral insufficiency fractures. The study is limited by the absence of oral and intravenously administered contrast. IMPRESSION: 1. 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 Low volume ascites 3. Interval development of a moderate right pleural effusion and small left pleural effusion 4. Significant fecal retention, likely secondary to sigmoid compression from the very large pelvic ma ss 5. Bilateral sacral insufficiency fractures Electronically signed by: Leon Hernandez M.D. 05/21/2018 6:39 PM
[2018-05-21 18:50] LABS: Appearance Urine Clear (Clear); Bacteria Urine Automated Negative (Negative); Bilirubin Urine Negative (Negative); Color Urine Dark Yellow; Epithelial Cell Urine Auto 20-30 /lpf (0-5); Glucose Urine UA Negative (Negative); Ketones Urine Trace (Negative); Leukocyte Esterase Urine Trace (Negative); Nitrite Urine Negative (Negative); Protein Urine Negative (Negative); Specific Gravity Urine 1.018 (1.000-1.030); Urobilinogen Urine Negative (Negative); pH Urine 7.5 (4.5-7.5)
--- NOTE | 2018-05-21 20:41 | History & Physical Report ---
Date of Service May 21, 2018 Assessment & Plan (1) Fecal impaction: Ovarian mass causing sigmoid obstruction, fecal impaction-- Admits to oncology suite. Hydrate with IV fluids and IV albumin. N.p.o. except ice chips. She is already unsuccessfully been tried on MiraLAX and enemas. We will consult gastroenterology for possible colon stents. Consult general surgery, as it has been brought up to her earlier in today's visit about a possible colostomy, but that is not her preference. Pantoprazole 40 mg IV daily. Zofran 4 mg IV every 6 hours as needed. Compazine 10 mg IV every 6 hours as needed. Acetaminophen 1000 mg IV every 8 hours as needed mild pain or temperature. Present on Admission?: Yes (2) Ovarian cancer: Consult her oncologist Dr. Gordon, regarding enlarging ovarian mass. Patient has requested to be DNR/DNI, and a POLST form has been completed at this time. She does still want IV fluids and IV antibiotics if would be helpful. She does not want any form of artificial nutrition. Present on Admission?: Yes (3) Hyponatremia: Placed on D5 normal saline at 80 mils per hour. Follow serial laboratories. Present on Admission?: Yes History of Present Illness Chief Complaint: The patient presents to the emergency department with complaint of no bowel movement for 7 days, with increasing abdominal distention and pain. Primary Care Provider: Rom Thornton The patient is a 72-year-old female with a past medical history significant for ovarian cancer, who presents to the emergency department with no bowel movement over the past 7 days, increasing abdominal distention and pain, with decreasing intake of foods and liquids. She has been given MiraLAX and enemas for constipation without improvement. She was seen by her hospice nurse earlier in the day, and advised to come to the ED for assessment. She reports that she had fluid taken out of her abdomen 4 days ago and was told that time that her bowels were full. Allergies Allergy/AdvReac Type Severity Reaction Status Date / Time Penicillins Allergy Mild ARM Verified 05/17/18 13:00 SWELLED UP Home Medications Home Medications Medication Instructions Recorded Confirmed Type lactobacillus combination no.4 3,000 mmu cells PO TIDM 03/05/18 05/21/18 History [Probiotic] melatonin 1 mg PO HS 03/05/18 05/21/18 History metoprolol succinate 25 mg PO QAM 03/05/18 05/21/18 History dexlansoprazole [Dexilant] 60 mg PO QAM 05/21/18 05/21/18 History ondansetron HCl 8 mg PO TID 05/21/18 05/21/18 History tramadol 100 mg PO Q6H 05/21/18 05/21/18 History Past Med/Surg History Social History Current Living Situation: Alone Feels Safe at Home: Yes Smoking Status: Former smoker Do You Dip or Chew Tobacco: No Smoking End Date: > 40 years ago Hx Alcohol Use: No Hx Substance Use: No Beliefs That Will Affect Care: None Preferred Language: Lao Communication Ability: Effective Beeh[employer] Charcoal Burner Required: No Review of Systems The patient denies chest pain, palpitations, shortness of breath, dyspnea on exertion, cough, sore throat, fevers, chills, sweats, blood in urine or stool, dysuria, urinary frequency or urgency, lightheadedness, dizziness, headache, memory loss, loss of consciousness, rash, abnormal bruising or bleeding, imbalance, focal weakness, numbness or tingling in arms or legs, generalized arthralgias or myalgias, neck pain, or night sweats. The review of systems is otherwise negative other than for that already noted above, and at least 10 systems have been reviewed. Physical Exam 2 Vital Signs (Past 24 Hours): Last Vital Signs Temp 36.4 C L 05/21/18 17:10 Pulse 78 05/21/18 18:58 Resp 20 05/21/18 18:58 BP 133/67 05/21/18 18:58 Pulse Ox 98 05/21/18 18:58 Physical Exam: The patient is awake, alert and oriented 3, looks emaciated, normocephalic and atraumatic, lying in bed and in no acute distress. HEENT--PERRL, EOMI, mucous membranes and oropharynx dry. Neck--supple. No JVD. No bruits. Thyroid normal, trachea midline, no adenopathy. Heart--normal S1 and S2. No murmurs, rubs or gallops. Lungs--clear bilaterally, no respiratory distress, no accessory muscle use. Abdomen--decreased bowel sounds. Mildly distended. Nontender. No rebound. Extremities--1-2+ bilateral pretibial pitting edema. There are good distal pulses b/l. Dermatologic--normal skin turgor, normal color, no abnormal lymph nodes, no rash. Neurologic--cranial nerves II through XII grossly intact. Rheumatologic--normal range of motion. Psychiatric--normal affect. Results & Data Laboratory Results Laboratory Results WBC 8.83 K/uL (4.8-10.8) 05/21/18 17:50 RBC 3.18 M/uL (4.2-5.4) L 05/21/18 17:50 Hgb 9.8 g/dL (12.0-16.0) L 05/21/18 17:50 Hct 30.9 % (37-47) L 05/21/18 17:50 MCV 97.2 fL (80-100) 05/21/18 17:50 MCH 30.8 pg (25-34) 05/21/18 17:50 MCHC 31.7 g/dL (32-36) L 05/21/18 17:50 RDW Std Deviation 63.0 fL (36.4-46.3) H 05/21/18 17:50 RDW Coeff of Briseyda 17.9 % (11.5-14.5) H 05/21/18 17:50 Plt Count 357 K/uL (130-400) 05/21/18 17:50 MPV 8.4 fL (7.4-10.4) 05/21/18 17:50 Immature Gran % (Auto) 0.3 % 05/21/18 17:50 Neut % (Auto) 81.8 % 05/21/18 17:50 Lymph % (Auto) 5.2 % 05/21/18 17:50 [place] % (Auto) 12.5 % 05/21/18 17:50 Eos % (Auto) 0.0 % 05/21/18 17:50 Baso % (Auto) 0.2 % 05/21/18 17:50 Immature Gran # (Auto) 0.03 K/uL (0.00-0.02) H 05/21/18 17:50 Neut # (Auto) 7.22 K/uL (1.4-6.5) H 05/21/18 17:50 Lymph # (Auto) 0.46 K/uL (1.2-3.4) L 05/21/18 17:50 [place] # (Auto) 1.10 K/uL (0.11-0.59) H 05/21/18 17:50 Eos # (Auto) 0.00 K/uL (0-0.5) 05/21/18 17:50 Baso # (Auto) 0.02 K/uL (0-0.2) 05/21/18 17:50 Sodium 125 mmol/L (136-145) L 05/21/18 17:50 Potassium 5.2 mmol/L (3.5-5.1) H 05/21/18 17:50 Chloride 91 mmol/L (98-107) L 05/21/18 17:50 Carbon Dioxide 26 mmol/L (21-32) 05/21/18 17:50 Anion Gap 9.0 (3-11) 05/21/18 17:50 BUN 17 mg/dl (7-18) 05/21/18 17:50 Creatinine 0.85 mg/dl (0.6-1.2) 05/21/18 17:50 Est Cr Clr Drug Dosing Not Reportable 05/21/18 17:50 Est GFR ( Amer) 79.3 05/21/18 17:50 Est GFR (Non-Af Amer) 68.5 05/21/18 17:50 BUN/Creatinine Ratio 19.6 (10-20) 05/21/18 17:50 Glucose 78 mg/dl (70-99) 05/21/18 17:50 Calcium 8.8 mg/dl (8.5-10.1) 05/21/18 17:50 Total Bilirubin 0.4 mg/dl (0.2-1) 05/21/18 17:50 AST 33 U/L (15-37) 05/21/18 17:50 ALT 18 U/L (12-78) 05/21/18 17:50 Alkaline Phosphatase 101 U/L (45-117) 05/21/18 17:50 Total Protein 6.1 gm/dl (6.4-8.2) L 05/21/18 17:50 Albumin 1.9 gm/dl (3.4-5.0) L 05/21/18 17:50 Globulin 4.2 gm/dl (2.5-4.0) H 05/21/18 17:50 Albumin/Globulin Ratio 0.5 (0.9-2) L 05/21/18 17:50 Lipase 41 U/L (73-393) L 05/21/18 17:50 Urine Color Dark Yellow 05/21/18 18:30 Urine Appearance Clear (Clear) 05/21/18 18:30 Urine pH 7.5 (4.5-7.5) 05/21/18 18:30 Ur Specific [place] 1.018 (1.000-1.030) 05/21/18 18:30 Urine Protein Negative (Negative) 05/21/18 18:30 Urine Glucose (UA) Negative (Negative) 05/21/18 18:30 Urine Ketones Trace (Negative) H 05/21/18 18:30 Urine Blood Negative (Negative) 05/21/18 18:30 Urine Nitrite Negative (Negative) 05/21/18 18:30 Urine Bilirubin Negative (Negative) 05/21/18 18:30 Urine Urobilinogen Negative (Negative) 05/21/18 18:30 Ur Leukocyte Esterase Trace (Negative) H 05/21/18 18:30 Urine WBC (Auto) 1-5 /hpf (0-5) 05/21/18 18:30 Urine RBC (Auto) 0-4 /hpf (0-4) 05/21/18 18:30 U Hyaline Cast (Auto) 1-5 /lpf (0-5) 05/21/18 18:30 U Epithel Cells (Auto) 20-30 /lpf (0-5) H 05/21/18 18:30 Urine Bacteria (Auto) Negative (Negative) 05/21/18 18:30 Diagnostic Findings [facility], [place] [phone] CT Scan Report Patient: NICOLE MAHONEY Date: 05/21/18 MR#: [id number]: [id number] Acct ID:[id number]: Date: 1945[facility] Zip: [place] [address] Age: 72Location: ED Sex: F Room/Bed: Att Phy: Diagnosis: BOWEL BLOCKAGE Sandra Phy: Rom Thornton M.D.Service Date: 05/21/18 [facility] Phy: Interpreting Phy: Leon Hernandez MD Admit Phy: Ordering Phy: Garry Reid, DO cc: ~ CT SCAN OF THE ABDOMEN AND PELVIS WITHOUT CONTRAST CLINICAL HISTORY: constipation DIFFUSE ABDOMINAL PAIN COMPARISON STUDY: 04/11/2018 TECHNIQUE: CT scan of the abdomen and pelvis was performed from the lung bases to the proximal femurs. Images are reviewed in the axial, sagittal, and coronal planes. IV contrast was not administered for this examination. A dose lowering technique was utilized adhering to the principles of ALARA. CT DOSE: 533.98 mGy.cm FINDINGS: Lower chest: There is a moderate right pleural effusion and small left pleural effusion. There are compressive atelectatic changes within the right lower lobe. Liver: There are scattered hypodense hepatic lesions likely representing cysts. There is a 10 cm right subdiaphragmatic complex cystic mass deforming the superior margin the liver. Gallbladder: Unremarkable. Spleen: Normal in size and attenuation. Pancreas: Unremarkable. Adrenal glands: Unremarkable. Kidneys: The unenhanced kidneys are normal in size without hydronephrosis. There is no contour deforming renal mass lesion. No renal calculi are identified. Bowel: There is significant fecal retention. There is extrinsic compression of the sigmoid colon which likely explains the significant fecal retention. The colon measures up to 8 cm in diameter. Peritoneum: There is ascites. There is a very large complex partially solid and cystic mass arising from the pelvis measuring 17.5 x 19.8 x 20.6 cm. There are multiple peritoneal implants including a lower anterior pelvic implant measuring 4.3 cm in diameter. Vasculature: The abdominal aorta is normal in course and caliber. Adenopathy: None. Pelvic viscera: The uterus and ovaries are not visualized separate from the large pelvic mass. The patient may be status post a prior hysterectomy Skeletal structures: There are bilateral sacral insufficiency fractures. The study is limited by the absence of oral and intravenously administered contrast. IMPRESSION: 1. 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 Low volume ascites 3. Interval development of a moderate right pleural effusion and small left pleural effusion 4. Significant fecal retention, likely secondary to sigmoid compression from the very large pelvic mass 5. Bilateral sacral insufficiency fractures Electronically signed by: Leon Hernandez M.D. 05/21/2018 6:39 PM Dictated: 05/21/181823 Transcribed: 05/21/181823 Code Status & VTE Plan Code Status DO NOT RESUSCITATE. Polst form completed with patient today VTE Prophylaxis Plan VTE Prophylaxis will be ordered: Yes _ (1) Ovarian cancer Laterality: unspecified laterality Qualified Code(s): C56.9 - Malignant neoplasm of unspecified ovary
[2018-05-21] MEDS ORDERED: ACETAMINOPHEN 1000 MG/100 ML IV IV PRN (21:16)
[2018-05-21] MEDS: D5W AND NSS 1,000 ML IV SCH (22:15)
[2018-05-21] MEDS: ALBUMIN 25% 50 ML IV SCH ×2 (22:44→23:53)
[2018-05-21 22:48] LABS: INR 1.2 (0.9-1.1)
[2018-05-21] MEDS ORDERED: KETOROLAC TROMETHAMINE 15 MG/ML VIAL ONE (22:52)
[2018-05-21] MEDS: HEPARIN SOD 5,000 UNIT/0.5 ML VIAL SQ SCH (23:56)
[2018-05-21] MEDS: ONDANSETRON INJ 2 MG/ML 2 ML VIAL IV PRN (23:57)
[2018-05-22] MEDS ORDERED: HEPARIN 100 UNIT/ML 5ML FLUSH FLUSH PRN (00:42)
[2018-05-22] MEDS: KETOROLAC TROMETHAMINE 15 MG/ML VIAL IV PRN ×3 (05:04→18:55)
[2018-05-22] MEDS: ONDANSETRON INJ 2 MG/ML 2 ML VIAL IV PRN (06:15)
[2018-05-22 06:30] LABS: Basophils # (auto) 0.04 K/uL (0-0.2); Basophils % (auto) 0.6 %; Hematocrit (blood only) 24.3 % (37-47); Hemoglobin 7.6 g/dL (12.0-16.0); Immature Granulocytes # (auto) 0.02 K/uL (0.00-0.02); Immature Granulocytes % (auto) 0.3 %; Lymphocytes # (auto) 0.59 K/uL (1.2-3.4); Lymphocytes % (auto) 8.2 %; Mean Corpuscular Hgb Conc 31.3 g/dL (32-36); Mean Corpuscular Volume 97.2 fL (80-100); Mean Platelet Volume 8.3 fL (7.4-10.4); Monocytes % (auto) 12.6 %; Neutrophils # (auto) 5.61 K/uL (1.4-6.5); Neutrophils % (auto) 78.3 %; Platelet Count 335 K/uL (130-400); RDW Coefficient of Variation 18.1 % (11.5-14.5); RDW Standard Deviation 63.8 fL (36.4-46.3); White Blood Count 7.16 K/uL (4.8-10.8)
[2018-05-22 06:54] LABS: INR 1.3 (0.9-1.1); Partial Thromboplastin Ratio 1.5; Partial Thromboplastin Time 39.5 Seconds (21.0-31.0); Prothrombin Time 12.8 Seconds (9.0-12.0)
[2018-05-22 07:05] LABS: BUN Creatinine Ratio 22.7 (10-20); Creatinine Clr Calc Pharmacy 64.3 ml/min; Est GFR (African American) 93.8; Est GFR (Non-African American) 80.9; Potassium 4.9 mmol/L (3.5-5.1)
[2018-05-22 07:08] LABS: Polychromasia 1+
[2018-05-22 07:11] LABS: Albumin Globulin Ratio 0.6 (0.9-2); Bilirubin,Total 0.6 mg/dl (0.2-1); Globulin 3.1 gm/dl (2.5-4.0); Total Protein 5.1 gm/dl (6.4-8.2)
--- NOTE | 2018-05-22 08:38 | Surgery Consultation ---
Date of Consultation May 22, 2018 Assessment & Plan (1) Fecal impaction: 72-year-old female with sigmoid obstruction secondary to enlarging ovarian mass resulting in fecal impaction. Patient seen and examined with Dr. Van. No indication for emergent surgical intervention. Patient reports that she would not want a colostomy if that would be indicated. GI consult placed by Dr. Raymond for possible colonic stent placement. General Surgery will continue to follow along closely. Please call with questions or concerns. History of Present Illness Reason for Consultation: Ovarian mass, sigmoid obstruction Attending Physician: Fawad Raymond MD History of Present Illness Ms. Hopson is a 72-year-old female with past medical history significant for ovarian cancer (currently receiving at home hospice care) who presented to [facility] ED for evaluation of lack of bowel movement for 7 days with secondary abdominal distention and abdominal discomfort. In addition, patient denies passing flatus. Patient reports that she typically does not have an issue with constipation and became worried when at home enemas and MiraLax did not remedy her constipation. Her hospice nurse recommended that she come to ED. Currently , she states that her abdomen pain is controlled and she denies nausea. Imaging in ED consisted of a non-contrast CT scan of abdomen/pelvis which revealed significant fecal retention, likely secondary to sigmoid compression from a very large complex partially solid and cystic mass arising from the pelvis measuring 17.5 x 19.8 x 20.6 cm. There are also multiple peritoneal implants including a lower anterior pelvic implant measuring 4.3 cm in diameter. The colon measures up to 8 cm in diameter. AM labwork WBC 7.16 Allergies Allergy/AdvReac Type Severity Reaction Status Date / Time Penicillins Allergy Mild ARM Verified 05/17/18 13:00 SWELLED UP Home Medications Home Medications Medication Instructions Recorded Confirmed Type lactobacillus combination no.4 3,000 mmu cells PO TIDM 03/05/18 05/21/18 History [Probiotic] melatonin 1 mg PO HS 03/05/18 05/21/18 History metoprolol succinate 25 mg PO QAM 03/05/18 05/21/18 History dexlansoprazole [Dexilant] 60 mg PO QAM 05/21/18 05/21/18 History ondansetron HCl 8 mg PO TID 05/21/18 05/21/18 History tramadol 100 mg PO Q6H 05/21/18 05/21/18 History Patient History Social History Current Living Situation: Alone Feels Safe at Home: Yes Smoking Status: Former smoker Do You Dip or Chew Tobacco: No Smoking End Date: > 40 years ago Hx Alcohol Use: No Hx Substance Use: No Beliefs That Will Affect Care: None Preferred Language: Surinamese Communication Ability: Effective Supervisor Looping Required: No Physical Exam 2 Vital Signs (Past 24 Hours): Last Vital Signs Temp 36.5 C 05/22/18 07:00 Pulse 92 H 05/22/18 07:00 Resp 16 05/22/18 07:00 BP 104/59 L 05/22/18 07:00 Pulse Ox 97 05/22/18 07:00 Gastrointestinal (Abdomen): Inspection/Auscultation: + abdomen distended Percussion/Palpation: + abdomen tender (tender in upper and lower left quadrants. )
[2018-05-22] MEDS: HEPARIN SOD 5,000 UNIT/0.5 ML VIAL SQ SCH ×2 (08:55→20:45)
--- NOTE | 2018-05-22 10:50 | Gastrointestinal Consultation ---
Date of Consultation May 22, 2018 Assessment & Plan (1) Bowel obstruction: Patient is a 72 yo female with fecal retention and possible sigmoid obstruction secondary to large pelvic masses from her metastatic cancer. The case was discussed at length with Dr. Osuna. Given that the reason for sigmoid obstruction is external compression to the colon from the pelvic masses, a colonic stent would not be appropriate. At this time, I would recommend continued comfort measures. Would advise routine use of enemas and Miralax. Further recommendations will be forthcoming pending her response to the bowel regimen, however even endoscopic decompression would not resolve the underlying problem as this will reoccur due to the pelvic masses. Thank you for allowing us to participate in the care of this patient. If you should have any further questions or concerns, do not hesitate to contact us. Present on Admission?: Yes Supervising Physician Co-Signing Physician Notes Agree with DYLAN Soliman as above Discussed with the patient that a colonic stent is not appropriate in this case , due to external compression, rather than an intraluminal mass. With external compression, there is risk of stent migration. The patient understood this, and we will continue to try to have the patient move bowels with aid of oral and rectal laxatives. Consideration could be given to a diverting colostomy versus comfort care. I will defer to surgery in this regard. History of Present Illness Reason for Consultation: Sigmoid obstruction Attending Physician: Fawad Raymond MD History of Present Illness Patient is a 72 yo female with a past medical history of metastatic ovarian cancer. She is presently on hospice services. A CT scan since her admission indicates progressive peritoneal metastatic disease with multiple enlarging peritoneal masses. She was noted to have low volume ascites, pleural effusions, & sacral insufficiency fractures. The CT also indicated fecal retention secondary to sigmoid compression from very large pelvic masses. Surgery requested a GI consult for consideration of a colonic stent. The patient reports that the only time she has moved her bowels in the past 1 week was when she was given an enema by her hospice nurses. She has been taking Miralax BID. She reports a colonoscopy over 10 years ago that was unremarkable. She denies rectal bleeding. She reports LLQ abdominal discomfort. Allergies Allergy/AdvReac Type Severity Reaction Status Date / Time Penicillins Allergy Mild ARM Verified 05/17/18 13:00 SWELLED UP Home Medications Home Medications Medication Instructions Recorded Confirmed Type lactobacillus combination no.4 3,000 mmu cells PO TIDM 03/05/18 05/21/18 History [Probiotic] melatonin 1 mg PO HS 03/05/18 05/21/18 History metoprolol succinate 25 mg PO QAM 03/05/18 05/21/18 History dexlansoprazole [Dexilant] 60 mg PO QAM 05/21/18 05/21/18 History ondansetron HCl 8 mg PO TID 05/21/18 05/21/18 History tramadol 100 mg PO Q6H 05/21/18 05/21/18 History Patient History Social History Current Living Situation: Alone Feels Safe at Home: Yes Smoking Status: Former smoker Do You Dip or Chew Tobacco: No Smoking End Date: > 40 years ago Hx Alcohol Use: No Hx Substance Use: No Beliefs That Will Affect Care: None Communication Ability: Effective Review of Systems Constitutional: + fatigue; no fever and no chills No acute issues No acute issues Respiratory: no cough and no dyspnea Cardiovascular: no chest pain Gastrointestinal: + abdominal pain and + constipation Musculoskeletal: no back pain Integumentary: no rash No acute complaints Psychiatric: + depression Hematologic / Lymphatic: no easy bleeding Physical Exam 2 Vital Signs (Past 24 Hours): Last Vital Signs Temp 36.5 C 05/22/18 07:00 Pulse 92 H 05/22/18 07:00 Resp 16 05/22/18 07:00 BP 104/59 L 05/22/18 07:00 Pulse Ox 97 05/22/18 07:00 Constitutional: + thin and + cachectic Eyes: PERRL, conjunctivae normal, anicteric sclerae ENMT: external ear and nose normal, oropharynx normal Neck: normal visual inspection Respiratory: normal respiratory effort, lungs clear to auscultation Cardiovascular: RRR, no murmur, no edema Gastrointestinal (Abdomen): Inspection/Auscultation: + abdomen distended Percussion/Palpation: + abdomen tender Musculoskeletal: no cyanosis or clubbing, extremities motor strength 5/5 Skin: no rashes, warm and dry Neurologic: Speech / Cognition: normal speech Psychiatric: Orientation: alert and oriented x 3
[2018-05-22] MEDS ORDERED: PANTOprazole 40 MG in SYRINGE 0 ML IV SCH (11:00)
[2018-05-22] MEDS: DOCUSATE SODIUM 100 MG CAP PO SCH ×2 (11:39→20:52)
--- NOTE | 2018-05-22 11:47 | Hospitalist Progress Note ---
Date of Service May 22, 2018 Assessment & Plan (1) Fecal impaction: Ovarian mass causing sigmoid obstruction, fecal impaction-- patient does not want a diverting colostomy she understands that a colon stent not indicated since the compression is external from ovarian mass GI recommends aggressive bowel regimen with enemas, colace, Miralax QID, Senokot hopeful that the conservative measures will work explained to patient that she could develop bowel obstruction in the future she accepts that this would be a terminal event given that she does not want surgery (2) Ovarian cancer: Consult her oncologist Dr. Gordon, regarding enlarging ovarian mass. Patient has requested to be DNR/DNI, and a POLST form has been completed at this time. She does still want IV fluids and IV antibiotics if would be helpful. She does not want any form of artificial nutrition. (3) Hyponatremia: repeat sodium tomorrow Subjective patient resting in bed comfortably last BM was a week ago, required enemas and laxatives at home via hospice nurses discussed the situation with Dr. Gordon this morning he has explained to the patient that this may not resolve and may be a terminal event she confirmed with me that she does not want a diverting colostomy I explained that a stent would not be possible due to the external compression from the tumor GI recommends enemas, aggressive bowel regimen hoping she can move bowels she wishes to remain on hospice Review of Systems All systems reviewed & are unremarkable except as noted in HPI & below Respiratory: + dyspnea on exertion Gastrointestinal: + abdominal pain and + constipation Psychiatric: + anxiety Physical Exam 2 Vital Signs (Past 24 Hours): Last Vital Signs Temp 36.5 C 05/22/18 07:00 Pulse 92 H 05/22/18 07:00 Resp 16 05/22/18 07:00 BP 104/59 L 05/22/18 07:00 Pulse Ox 97 05/22/18 07:00 Constitutional: WD/WN, vitals as above Neck: trachea midline, no thyromegaly Respiratory: normal respiratory effort, lungs clear to auscultation Cardiovascular: RRR, no murmur, no edema Gastrointestinal (Abdomen): Inspection/Auscultation: + abdomen distended ( slightly) and normal bowel sounds Percussion/Palpation: + abdomen tender ( lower abdomen, slightly tender) and abdomen soft; no guarding, abdomen not rigid and no hepatosplenomegaly Musculoskeletal: no cyanosis or clubbing, extremities motor strength 5/5 Skin: no rashes, warm and dry Neurologic: patellar DTR's 2+ bilat, sensation intact and PERRL, EOMI, accommodation nl, no face palsy, no dysarthria Psychiatric: A+Ox3, euthymic affect Lymphatic: no cervical or axillary lymphadenopathy Results & Data Laboratory Results Laboratory Results - last 24 hr 05/21/18 05/21/18 05/21/18 17:50 17:50 17:50 WBC 8.83 RBC 3.18 L Hgb 9.8 L Hct 30.9 L MCV 97.2 MCH 30.8 MCHC 31.7 L RDW Std Deviation 63.0 H RDW Coeff of Briseyda 17.9 H Plt Count 357 MPV 8.4 Immature Gran % (Auto) 0.3 Neut % (Auto) 81.8 Lymph % (Auto) 5.2 Stephenson % (Auto) 12.5 Eos % (Auto) 0.0 Baso % (Auto) 0.2 Immature Gran # (Auto) 0.03 H Neut # (Auto) 7.22 H Lymph # (Auto) 0.46 L Stephenson # (Auto) 1.10 H Eos # (Auto) 0.00 Baso # (Auto) 0.02 Polychromasia PT 12.0 INR 1.2 H APTT PTT Ratio Sodium 125 L Potassium 5.2 H Chloride 91 L Carbon Dioxide 26 Anion Gap 9.0 BUN 17 Creatinine 0.85 Est Cr Clr Drug Dosing Not Reportable Est GFR ( Amer) 79.3 Est GFR (Non-Af Amer) 68.5 BUN/Creatinine Ratio 19.6 Glucose 78 Calcium 8.8 Total Bilirubin 0.4 AST 33 ALT 18 Alkaline Phosphatase 101 Total Protein 6.1 L Albumin 1.9 L Globulin 4.2 H Albumin/Globulin Ratio 0.5 L Lipase 41 L Urine Color Urine Appearance Urine pH Ur Specific Speedwell Urine Protein Urine Glucose (UA) Urine Ketones Urine Blood Urine Nitrite Urine Bilirubin Urine Urobilinogen Ur Leukocyte Esterase Urine WBC (Auto) Urine RBC (Auto) U Hyaline Cast (Auto) U Epithel Cells (Auto) Urine Bacteria (Auto) 05/21/18 05/22/18 05/22/18 18:30 05:50 05:50 WBC 7.16 RBC 2.50 L Hgb 7.6 L Hct 24.3 L MCV 97.2 MCH 30.4 MCHC 31.3 L RDW Std Deviation 63.8 H RDW Coeff of Briseyda 18.1 H Plt Count 335 MPV 8.3 Immature Gran % (Auto) 0.3 Neut % (Auto) 78.3 Lymph % (Auto) 8.2 Stephenson % (Auto) 12.6 Eos % (Auto) 0.0 Baso % (Auto) 0.6 Immature Gran # (Auto) 0.02 Neut # (Auto) 5.61 Lymph # (Auto) 0.59 L Stephenson # (Auto) 0.90 H Eos # (Auto) 0.00 Baso # (Auto) 0.04 Polychromasia 1+ PT 12.8 H INR 1.3 H APTT 39.5 H PTT Ratio 1.5 Sodium Potassium Chloride Carbon Dioxide Anion Gap BUN Creatinine Est Cr Clr Drug Dosing Est GFR ( Amer) Est GFR (Non-Af Amer) BUN/Creatinine Ratio Glucose Calcium Total Bilirubin AST ALT Alkaline Phosphatase Total Protein Albumin Globulin Albumin/Globulin Ratio Lipase Urine Color Dark Yellow Urine Appearance Clear Urine pH 7.5 Ur Specific Speedwell 1.018 Urine Protein Negative Urine Glucose (UA) Negative Urine Ketones Trace H Urine Blood Negative Urine Nitrite Negative Urine Bilirubin Negative Urine Urobilinogen Negative Ur Leukocyte Esterase Trace H Urine WBC (Auto) 1-5 Urine RBC (Auto) 0-4 U Hyaline Cast (Auto) 1-5 U Epithel Cells (Auto) 20-30 H Urine Bacteria (Auto) Negative 05/22/18 05:50 WBC RBC Hgb Hct MCV MCH MCHC RDW Std Deviation RDW Coeff of Briseyda Plt Count MPV Immature Gran % (Auto) Neut % (Auto) Lymph % (Auto) Stephenson % (Auto) Eos % (Auto) Baso % (Auto) Immature Gran # (Auto) Neut # (Auto) Lymph # (Auto) Stephenson # (Auto) Eos # (Auto) Baso # (Auto) Polychromasia PT INR APTT PTT Ratio Sodium 127 L Potassium 4.9 Chloride 96 L Carbon Dioxide 27 Anion Gap 4.0 BUN 17 Creatinine 0.74 Est Cr Clr Drug Dosing 64.3 Est GFR ( Amer) 93.8 Est GFR (Non-Af Amer) 80.9 BUN/Creatinine Ratio 22.7 H Glucose 84 Calcium 8.0 L Total Bilirubin 0.6 AST 26 ALT 15 Alkaline Phosphatase 72 Total Protein 5.1 L Albumin 2.0 L Globulin 3.1 Albumin/Globulin Ratio 0.6 L Lipase Urine Color Urine Appearance Urine pH Ur Specific Speedwell Urine Protein Urine Glucose (UA) Urine Ketones Urine Blood Urine Nitrite Urine Bilirubin Urine Urobilinogen Ur Leukocyte Esterase Urine WBC (Auto) Urine RBC (Auto) U Hyaline Cast (Auto) U Epithel Cells (Auto) Urine Bacteria (Auto) Medications Administered Current Inpatient Medications Acetaminophen (Ofirmev) 1,000 mg IV Q8H PRN PRN Reason: Pain or Fever Stop: 06/20/18 21:15 Docusate Sodium (Colace) 100 mg PO BID [facility] Stop: 06/21/18 10:59 Last Admin: 05/22/18 11:39 Dose: 100 mg Heparin Sodium (Porcine) (Heparin Sodium (Porcine)) 5,000 units SQ Q12 [facility] Stop: 06/20/18 23:14 Last Admin: 05/22/18 08:55 Dose: Not Given Heparin Sodium (Porcine) (Heparin Sod 100 Unit/Ml Flush) 5 ml FLUSH PRN PRN PRN Reason: Flush Stop: 06/21/18 00:44 Prochlorperazine 10 mg/ (Syringe) 10 mls @ 5 mls/min IV Q6H PRN PRN Reason: Nausea And Vomiting Stop: 06/20/18 21:15 Dextrose/Sodium Chloride (D5w And Nss) 1,000 mls @ 80 mls/hr IV .[id number] [facility] Stop: 06/20/18 22:14 Last Infusion: 05/22/18 01:02 Dose: 80 mls/hr Ketorolac Tromethamine (Toradol) 15 mg IV Q6H PRN PRN Reason: Pain Stop: 05/26/18 22:46 Last Admin: 05/22/18 11:40 Dose: 15 mg Lactulose (Chronulac) 30 gm PO Q8 [facility] Stop: 06/21/18 13:59 Ondansetron HCl (Zofran) 4 mg IV Q6H PRN PRN Reason: NAUSEA/VOMITING Stop: 06/20/18 21:15 Last Admin: 05/22/18 06:15 Dose: 4 mg Polyethylene Glycol (Miralax Powder Packet) 17 gm PO QID [facility] Stop: 02/21/19 12:59 Sennosides (Senjeanneot) 8.6 mg PO BID [facility] Stop: 06/21/18 10:59 _ (1) Ovarian cancer Laterality: unspecified laterality Qualified Code(s): C56.9 - Malignant neoplasm of unspecified ovary
[2018-05-22] MEDS ORDERED: POLYETHYLENE (MIRALAX) 17 GM PACK ONE (11:51)
[2018-05-22] MEDS: D5W AND NSS 1,000 ML IV SCH (12:08)
[2018-05-22] MEDS ORDERED: SOD PHOSPHATE/SOD BIPHOSPHATE ENEMA 132 ML BTL PR ONE (12:10)
[2018-05-22] MEDS: SENNA 8.6 MG TAB PO SCH ×2 (12:12→20:52)
[2018-05-22] MEDS: POLYETHYLENE (MIRALAX) 17 GM PACK PO SCH ×3 (12:15→20:52)
[2018-05-22] MEDS ORDERED: Nursing to Pharmacy Communication ONE (13:19)
[2018-05-22] MEDS: SOD PHOSPHATE/SOD BIPHOSPHATE ENEMA 132 ML BTL PR SCH ×2 (13:27→20:45)
[2018-05-22] MEDS ORDERED: ONDANSETRON 8 MG TABLET PO SCH (14:00)
[2018-05-22] MEDS: TRAMADOL HCL 50 MG TABLET PO SCH ×2 (14:46→20:11)
[2018-05-22] MEDS: LACTULOSE SYRUP 30 GM/45 ML UDP PO SCH ×2 (14:48→20:52)
[2018-05-22] MEDS: ONDANSETRON 8 MG TABLET PO SCH ×2 (15:53→17:06)
[2018-05-22] MEDS: CALCIUM CARBONATE 500 MG CHEWABLE TAB PO PRN (17:33)
[2018-05-22] MEDS ORDERED: TRAMADOL HCL 50 MG TABLET PO SCH (18:00)
[2018-05-22] MEDS: PROCHLORPERAZINE 10 MG in SYRINGE 8 ML IV PRN (18:30)
[2018-05-23] MEDS: D5W AND NSS 1,000 ML IV SCH ×2 (00:46→13:41)
[2018-05-23] MEDS: CALCIUM CARBONATE 500 MG CHEWABLE TAB PO PRN ×4 (00:46→20:31)
[2018-05-23] MEDS: TRAMADOL HCL 50 MG TABLET PO SCH ×4 (02:01→20:19)
[2018-05-23] MEDS: LACTULOSE SYRUP 30 GM/45 ML UDP PO SCH ×3 (05:51→20:24)
[2018-05-23] MEDS: DOCUSATE SODIUM 100 MG CAP PO SCH ×2 (08:07→20:21)
[2018-05-23] MEDS: ONDANSETRON 8 MG TABLET PO SCH ×3 (08:08→15:31)
[2018-05-23] MEDS: HEPARIN SOD 5,000 UNIT/0.5 ML VIAL SQ SCH ×2 (10:21→19:57)
[2018-05-23] MEDS: SOD PHOSPHATE/SOD BIPHOSPHATE ENEMA 132 ML BTL PR SCH ×2 (10:59→19:57)
[2018-05-23] MEDS: SENNA 8.6 MG TAB PO SCH ×2 (11:00→20:22)
[2018-05-23] MEDS: POLYETHYLENE (MIRALAX) 17 GM PACK PO SCH ×4 (11:00→20:22)
--- NOTE | 2018-05-23 13:07 | Hospitalist Progress Note ---
Date of Service May 23, 2018 Assessment & Plan (1) Fecal impaction: Ovarian mass causing sigmoid obstruction, fecal impaction-- patient moved bowels several times, she said 10 times all the stools were loose with some solid elements intermittently this morning patient would like to consider a diverting colostomy she does not want to go through the pain she had the past two days with the constipation she would prefer to not from a colon obstruction general surgery will see patient and give recommendations for now, continue bowel regimen to keep patient's bowels moving (2) Ovarian cancer: follows with Dr. Gordon has been on hospice for some time Patient has requested to be DNR/DNI, and a POLST form has been completed at this time. She does still want IV fluids and IV antibiotics if would be helpful. She does not want any form of artificial nutrition. (3) Hyponatremia: resolved Subjective patient says she feels better today after moving bowels "at least 10 times" all the stools were liquid she wanted to discuss the option of having a diverting colostomy to prevent bowel obstruction and discomfort in the futuer she understands that the fecal impaction, colon obstruction will only progress initially she did not want a colostomy but now she would like to discuss with surgeon I discussed the topic with Dr. Van over the phone he is going to ask Dr. Mejia to see patient since he can also place colonic stent if indicated for now, general surgery would like to continue bowel regimen and see if she can move bowels further will wait for Dr. Mejia to see patient Review of Systems All systems reviewed & are unremarkable except as noted in HPI & below Constitutional: + fatigue and + weakness Gastrointestinal: + abdominal pain, + bloating, + nausea and + constipation Physical Exam 2 Vital Signs (Past 24 Hours): Last Vital Signs Temp 36.7 C 05/23/18 12:00 Pulse 96 H 05/23/18 12:00 Resp 18 05/23/18 12:00 BP 123/73 05/23/18 12:00 Pulse Ox 97 05/23/18 12:00 Constitutional: WD/WN, vitals as above Neck: trachea midline, no thyromegaly Respiratory: normal respiratory effort, lungs clear to auscultation Cardiovascular: RRR, no murmur, no edema Gastrointestinal (Abdomen): Inspection/Auscultation: + abdomen distended ( less than yesterday) and normal bowel sounds Percussion/Palpation: + abdomen tender (lower abdomen, slightly tender) and abdomen soft; no guarding, abdomen not rigid and no hepatosplenomegaly Musculoskeletal: no cyanosis or clubbing, extremities motor strength 5/5 Skin: no rashes, warm and dry Neurologic: patellar DTR's 2+ bilat, sensation intact and PERRL, EOMI, accommodation nl, no face palsy, no dysarthria Psychiatric: A+Ox3, euthymic affect Lymphatic: no cervical or axillary lymphadenopathy Results & Data Medications Administered Current Inpatient Medications Acetaminophen (Ofirmev) 1,000 mg IV Q8H PRN PRN Reason: Pain or Fever Stop: 06/20/18 21:15 Calcium Carbonate (Tums) 500 mg PO Q4 PRN PRN Reason: Indigestion Stop: 06/21/18 16:56 Last Admin: 05/23/18 08:06 Dose: 500 mg Docusate Sodium (Colace) 100 mg PO BID [facility] Stop: 06/21/18 10:59 Last Admin: 05/23/18 08:07 Dose: 100 mg Heparin Sodium (Porcine) (Heparin Sodium (Porcine)) 5,000 units SQ Q12 [facility] Stop: 06/20/18 23:14 Last Admin: 05/23/18 10:21 Dose: Not Given Heparin Sodium (Porcine) (Heparin Sod 100 Unit/Ml Flush) 5 ml FLUSH PRN PRN PRN Reason: Flush Stop: 06/21/18 00:44 Prochlorperazine 10 mg/ (Syringe) 10 mls @ 5 mls/min IV Q6H PRN PRN Reason: Nausea And Vomiting Stop: 06/20/18 21:15 Last Admin: 05/22/18 18:30 Dose: 5 mls/min Dextrose/Sodium Chloride (D5w And Nss) 1,000 mls @ 80 mls/hr IV .[id number] [facility] Stop: 06/20/18 22:14 Last Admin: 05/23/18 00:46 Dose: 80 mls/hr Ketorolac Tromethamine (Toradol) 15 mg IV Q6H PRN PRN Reason: Pain Stop: 05/26/18 22:46 Last Admin: 05/22/18 18:55 Dose: 15 mg Lactulose (Chronulac) 30 gm PO Q8 [facility] Stop: 06/21/18 13:59 Last Admin: 05/23/18 05:51 Dose: Not Given Ondansetron HCl (Zofran) 4 mg IV Q6H PRN PRN Reason: NAUSEA/VOMITING Stop: 06/20/18 21:15 Last Admin: 05/22/18 06:15 Dose: 4 mg Ondansetron HCl (Zofran) 8 mg PO Q8H [facility] Stop: 06/21/18 15:59 Last Admin: 05/23/18 08:08 Dose: 8 mg Polyethylene Glycol (Miralax Powder Packet) 17 gm PO QID [facility] Stop: 06/21/18 12:59 Last Admin: 05/23/18 13:05 Dose: Not Given Sennosides (Senokot) 8.6 mg PO BID [facility] Stop: 06/21/18 10:59 Last Admin: 05/23/18 11:00 Dose: Not Given Sodium Biphosphate/Sodium Phosphate (Fleet Enema) 132 ml NC BID [facility] Stop: 06/21/18 11:59 Last Admin: 05/23/18 10:59 Dose: Not Given Tramadol HCl (Ultram) 100 mg PO Q6H [facility] Stop: 06/21/18 13:59 Last Admin: 05/23/18 08:06 Dose: 100 mg _ (1) Ovarian cancer Laterality: unspecified laterality Qualified Code(s): C56.9 - Malignant neoplasm of unspecified ovary
--- NOTE | 2018-05-23 16:38 | Oncology Consultation ---
Date of Consultation May 23, 2018 Assessment & Plan (1) Bowel obstruction: Her bowel obstruction is secondary to a very large pelvic mass that occupies the majority of her pelvis. If a stent could be placed, that might be a reasonable option to decompress her colon. I would be very hesitant to consider surgery in her situation, given her poor nutrition and limited expected survival. Another consideration could be a decompressive G-tube to help her with abdominal discomfort, though that would not really alleviate the obstruction. Finally, given her prognosis, another option would be to do nothing , acknowledging that the end of her life would likely be soon in such a scenario. She was waiting to discuss this plan with GI when I saw her and I will follow along to offer assistance where possible. Present on Admission?: Yes (2) Ovarian cancer: She has a terminal cancer and has a prognosis most likely measured in weeks, though it could be shorter even than that if no intervention is possible for her colonic obstruction. She is aware of this prognosis and was on hospice when this issue arose. Her very limited anticipated lifespan should inform any decision-making regarding managing her comorbid issues, as discussed above. Present on Admission?: Yes History of Present Illness Reason for Consultation: Colonic obstruction Metastatic ovarian carcinosarcoma Attending Physician: Chase Shaw DO History of Present Illness Ms. Hopson is a 72 year old woman with a history of metastatic ovarian carcinosarcoma. She had treatment refractory disease and I referred her to hospice care in March. She presented for this admission with worsening abdominal distention and difficulty eating. She does not really feel hungry, but desires to eat out of concern about not doing so. When she does, she gets full quickly and feels nauseous. She has had erratic bowel movements over the past few weeks. She also has had progressive pelvic pain, though it is still well controlled with Tramadol. Allergies Allergy/AdvReac Type Severity Reaction Status Date / Time Penicillins Allergy Mild ARM Verified 05/17/18 13:00 SWELLED UP Home Medications Home Medications Medication Instructions Recorded Confirmed Type lactobacillus combination no.4 3,000 mmu cells PO TIDM 03/05/18 05/21/18 History [Probiotic] melatonin 1 mg PO HS 03/05/18 05/21/18 History metoprolol succinate 25 mg PO QAM 03/05/18 05/21/18 History dexlansoprazole [Dexilant] 60 mg PO QAM 05/21/18 05/21/18 History ondansetron HCl 8 mg PO TID 05/21/18 05/21/18 History tramadol 100 mg PO Q6H 05/21/18 05/21/18 History Patient History Medical History History of hysterectomy Ovarian cancer Social History Current Living Situation: Alone Feels Safe at Home: Yes Smoking Status: Former smoker Do You Dip or Chew Tobacco: No Smoking End Date: > 40 years ago Hx Alcohol Use: No Hx Substance Use: No Beliefs That Will Affect Care: None Communication Ability: Effective Review of Systems Constitutional: + fatigue, + weakness, + anorexia and + weight loss Respiratory: no cough and no dyspnea Cardiovascular: no chest pain, no palpitations and no edema Gastrointestinal: as per Subjective / HPI Genitourinary (Female): no dysuria and no difficulty urinating Musculoskeletal: no back pain Integumentary: no rash and no bleeding lesions Hematologic / Lymphatic: no easy bleeding and no night sweats Physical Exam 2 Vital Signs (Past 24 Hours): Last Vital Signs Temp 36.3 C L 05/23/18 15:37 Pulse 96 H 05/23/18 15:37 Resp 18 05/23/18 15:37 BP 133/84 05/23/18 15:37 Pulse Ox 96 05/23/18 15:37 Constitutional: + ill appearing and + thin; no acute distress Eyes: + anicteric sclerae and EOM intact bilaterally ENMT: external ear and nose normal, oropharynx normal Respiratory: normal respiratory effort, lungs clear to auscultation Cardiovascular: RRR, no murmur, no edema Gastrointestinal (Abdomen): Inspection/Auscultation: + abdomen distended and + hypoactive bowel sounds Percussion/Palpation: abdomen soft; abdomen nontender Musculoskeletal: Extremities: + muscle atrophy Skin: no rashes, warm and dry Lymphatic: no cervical or axillary lymphadenopathy Results & Data Diagnostic Findings CT A/P, 05/21/18: 1. 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 Low volume ascites 3. Interval development of a moderate right pleural effusion and small left pleural effusion 4. Significant fecal retention, likely secondary to sigmoid compression from the very large pelvic mass 5. Bilateral sacral insufficiency fractures _ (1) Ovarian cancer Laterality: unspecified laterality Qualified Code(s): C56.9 - Malignant neoplasm of unspecified ovary
--- NOTE | 2018-05-23 17:17 | Surgery Progress Note ---
Date of Service May 23, 2018 Assessment & Plan (1) Fecal impaction: 05/23/2018 Multiple bowel movements overnight Patient is now considering diverting colostomy. Dr. Van will discuss surgical options with patient tomorrow. All questions answered. 05/22/2018 72-year-old female with sigmoid obstruction secondary to enlarging ovarian mass resulting in fecal impaction. Patient seen and examined with Dr. Van. No indication for emergent surgical intervention. Patient reports that she would not want a colostomy if that would be indicated. GI consult placed by Dr. Raymond for possible colonic stent placement. General Surgery will continue to follow along closely. Please call with questions or concerns. Subjective Patient resting comfortably in bed- reports multiple bowel movements overnight ( loose). Abdomen feels much better today. Denies nausea or vomiting. Physical Exam 2 Vital Signs (Past 24 Hours): Last Vital Signs Temp 36.3 C L 05/23/18 15:37 Pulse 96 H 05/23/18 15:37 Resp 18 05/23/18 15:37 BP 133/84 05/23/18 15:37 Pulse Ox 96 05/23/18 15:37 Gastrointestinal (Abdomen): Inspection/Auscultation: + abdomen distended ( less distended today. ) Percussion/Palpation: + abdomen tender (improved. )
--- NOTE | 2018-05-23 20:47 | XRay Report ---
KUB CLINICAL HISTORY: Sigmoid colon obstruction. FINDINGS: 2 AP, portable, supine abdominal radiographs are correlated with abdominal CT dated 05/21/19 19. There is gaseous distention of the colon, which measures up to 7.5 cm in diameter. Fecal burden a ppears diminished from previous. The small bowel loops are normal in caliber. No evidence of intraper itoneal free air is seen on these supine images. A large density in the pelvis likely corresponds to mass lesions when correlated with the recent CT scan. Surgical clips are noted in the midabdomen. The re are bilateral pleural effusions noted at the lung bases. The tip of a central venous infusion port projection of the right atrium. The bony structures appear intact. IMPRESSION: 1. There is gaseous distention of the colon consistent with the reported history of sigmoid obstructi on. 2. The small bowel loops are normal in caliber. 3. A large density projecting over the pelvis is consistent with large masses when correlated with th e recent abdominal CT. 4. Pleural effusions are seen at both lung bases. Electronically signed by: Braydon Cardenas M.D. 05/23/2018 8:46 PM
[2018-05-24] MEDS: ONDANSETRON 8 MG TABLET PO SCH ×3 (00:59→15:19)
[2018-05-24] MEDS: TRAMADOL HCL 50 MG TABLET PO SCH ×4 (00:59→19:59)
[2018-05-24] MEDS: D5W AND NSS 1,000 ML IV SCH ×2 (01:48→15:18)
[2018-05-24] MEDS: CALCIUM CARBONATE 500 MG CHEWABLE TAB PO PRN ×2 (01:48→15:22)
[2018-05-24 05:43] LABS: Basophils # (auto) 0.04 K/uL (0-0.2); Basophils % (auto) 0.5 %; Hematocrit (blood only) 28.8 % (37-47); Immature Granulocytes # (auto) 0.08 K/uL (0.00-0.02); Immature Granulocytes % (auto) 1.1 %; Lymphocytes # (auto) 0.65 K/uL (1.2-3.4); Lymphocytes % (auto) 8.6 %; Mean Corpuscular Hgb Conc 31.3 g/dL (32-36); Mean Corpuscular Volume 97.6 fL (80-100); Mean Platelet Volume 8.2 fL (7.4-10.4); Monocytes # (auto) 0.97 K/uL (0.11-0.59); Monocytes % (auto) 12.9 %; Neutrophils % (auto) 76.9 %; Platelet Count 349 K/uL (130-400); RDW Coefficient of Variation 18.1 % (11.5-14.5); RDW Standard Deviation 65.1 fL (36.4-46.3); Red Blood Count 2.95 M/uL (4.2-5.4); White Blood Count 7.54 K/uL (4.8-10.8)
[2018-05-24] MEDS: LACTULOSE SYRUP 30 GM/45 ML UDP PO SCH ×3 (06:14→22:13)
[2018-05-24 06:18] LABS: BUN Creatinine Ratio 21.3 (10-20); Calcium 8.7 mg/dl (8.5-10.1); Creatinine Clr Calc Pharmacy 79.3 ml/min; Est GFR (African American) 105.5; Est GFR (Non-African American) 91.1; Potassium 4.2 mmol/L (3.5-5.1)
[2018-05-24] MEDS: ONDANSETRON INJ 2 MG/ML 2 ML VIAL IV PRN ×2 (07:00→17:59)
[2018-05-24] MEDS: SOD PHOSPHATE/SOD BIPHOSPHATE ENEMA 132 ML BTL PR SCH ×2 (09:31→16:26)
[2018-05-24] MEDS: HEPARIN SOD 5,000 UNIT/0.5 ML VIAL SQ SCH ×2 (09:31→16:26)
[2018-05-24] MEDS: POLYETHYLENE (MIRALAX) 17 GM PACK PO SCH ×4 (09:33→19:58)
[2018-05-24] MEDS: SENNA 8.6 MG TAB PO SCH ×2 (09:34→19:58)
[2018-05-24] MEDS: DOCUSATE SODIUM 100 MG CAP PO SCH ×2 (09:34→19:58)
[2018-05-24] MEDS: PROCHLORPERAZINE 10 MG in SYRINGE 8 ML IV PRN ×2 (10:50→19:58)
--- NOTE | 2018-05-24 12:57 | Surgery Progress Note ---
Date of Service May 24, 2018 Assessment & Plan (1) Fecal impaction: 05/24/2018 Patient continues to move her bowels. Feeling much improved since admission. Dr. Van spoke with patient regarding surgical options. No decisions have been made at this time. General Surgery will continue to follow closely. 05/23/2018 Multiple bowel movements overnight Patient is now considering diverting colostomy. Dr. Van will discuss surgical options with patient tomorrow. All questions answered. 05/22/2018 72-year-old female with sigmoid obstruction secondary to enlarging ovarian mass resulting in fecal impaction. Patient seen and examined with Dr. Van. No indication for emergent surgical intervention. Patient reports that she would not want a colostomy if that would be indicated. GI consult placed by Dr. Raymond for possible colonic stent placement. General Surgery will continue to follow along closely. Please call with questions or concerns. Subjective Patient resting comfortably in bed- Dr. Van in to speak with patient regarding surgical options. Physical Exam 2 Vital Signs (Past 24 Hours): Last Vital Signs Temp 36.5 C 05/24/18 07:30 Pulse 98 H 05/24/18 07:30 Resp 20 05/24/18 07:30 BP 148/85 H 05/24/18 07:30 Pulse Ox 95 05/24/18 07:30
--- NOTE | 2018-05-24 15:11 | Ultrasound Report ---
US paracentesis abd w/image CLINICAL HISTORY: 72 years-old Female presenting with therapeutic paracentesis. COMPARISON: 05/21/2018. PROCEDURE: The procedure and its risks, benefits, and alternatives were discussed with the patient, and written informed consent was obtained. A timeout was performed to confirm patient identity. Limited ultrasound of the abdomen was performed to determine a safe needle entry site, and the site w as marker for paracentesis. The left lower quadrant was prepped and draped in the usual aseptic fashion. 1% Lidocaine was used fo r local anesthesia. A paracentesis needle-sheath was inserted into the peritoneal space using ultrasound guidance. The ne edle was removed and the sheath was connected to tubing and a vacuum suction device. A total of 1.5 L of clear dark yellow ascites was aspirated. The sheath was removed, and a dressing applied. The patient tolerated the procedure well. No immediate complications. IMPRESSION: Ultrasound-guided therapeutic paracentesis with aspiration of 1.5 L of ascites. Electronically signed by: Sancho Ascencio M.D. 05/24/2018 3:10 PM
--- NOTE | 2018-05-24 16:21 | Hospitalist Progress Note ---
Date of Service May 24, 2018 Assessment & Plan (1) Fecal impaction: Ovarian mass causing sigmoid obstruction, fecal impaction-- patient continues to have some intermittent loose stools long talk again today, there are no good options colonic stent not possible, diverting colostomy would not help, not probable due to ascites will need to continue bowel regimen (2) Ovarian cancer: follows with Dr. Gordon has been on hospice for some time Patient has requested to be DNR/DNI, and a POLST form has been completed at this time. plan to continue hospice at SNF, she understands she needs more help tumors causing malignant ascites and colonic obstruction (3) Hyponatremia: resolved (4) Malignant ascites: therapeutic paracentesis today for only 1.5 liters not sure if it would be reasonable to continue to bring patient in for taps could maybe consider drain in place as palliative measure certainly that would be a risk for infection but given her poor prognosis it could offer some relief she could stay at SNF and have it drained as needed Subjective patient with more abdominal discomfort today, more distension she requested a paracentesis, said she required one last week and it helped sent for US guided paracentesis, only 1.5 liters removed discussed that colostomy not really recommended, she agrees and understands she also accepts that she needs to go to a SNF CM involved in helping with d/c plans patient's friend and POA at the bedside we discussed poor prognosis, discussed there are no good solution for fecal impaction discussed possible drain in abdomen as palliative measure Review of Systems All systems reviewed & are unremarkable except as noted in HPI & below Constitutional: + fatigue and + weakness; no fever and no sweats Respiratory: no dyspnea Gastrointestinal: + abdominal pain, + bloating, + nausea, + vomiting and + constipation Physical Exam 2 Vital Signs (Past 24 Hours): Last Vital Signs Temp 36.2 C L 05/24/18 15:12 Pulse 94 H 05/24/18 15:12 Resp 18 05/24/18 15:12 BP 127/73 05/24/18 15:12 Pulse Ox 97 05/24/18 15:12 Constitutional: WD/WN, vitals as above Neck: trachea midline, no thyromegaly Respiratory: normal respiratory effort, lungs clear to auscultation Cardiovascular: RRR, no murmur, no edema Gastrointestinal (Abdomen): Inspection/Auscultation: + abdomen distended ( more than yesterday, tense) and normal bowel sounds Percussion/Palpation: + abdomen tender (diffuse) and abdomen soft; no guarding, abdomen not rigid and no hepatosplenomegaly Musculoskeletal: no cyanosis or clubbing, extremities motor strength 5/5 Skin: no rashes, warm and dry Neurologic: patellar DTR's 2+ bilat, sensation intact and PERRL, EOMI, accommodation nl, no face palsy, no dysarthria Psychiatric: A+Ox3, euthymic affect Lymphatic: no cervical or axillary lymphadenopathy Results & Data Laboratory Results Laboratory Results - last 24 hr 05/24/18 05/24/18 05:28 05:28 WBC 7.54 RBC 2.95 L Hgb 9.0 L Hct 28.8 L MCV 97.6 MCH 30.5 MCHC 31.3 L RDW Std Deviation 65.1 H RDW Coeff of Briseyda 18.1 H Plt Count 349 MPV 8.2 Immature Gran % (Auto) 1.1 Neut % (Auto) 76.9 Lymph % (Auto) 8.6 [place] % (Auto) 12.9 Eos % (Auto) 0.0 Baso % (Auto) 0.5 Immature Gran # (Auto) 0.08 H Neut # (Auto) 5.80 Lymph # (Auto) 0.65 L [place] # (Auto) 0.97 H Eos # (Auto) 0.00 Baso # (Auto) 0.04 Sodium 129 L Potassium 4.2 Chloride 100 Carbon Dioxide 24 Anion Gap 5.0 BUN 13 Creatinine 0.60 Est Cr Clr Drug Dosing 79.3 Est GFR ( Amer) 105.5 Est GFR (Non-Af Amer) 91.1 BUN/Creatinine Ratio 21.3 H Glucose 102 H Calcium 8.7 Medications Administered Current Inpatient Medications Acetaminophen (Ofirmev) 1,000 mg IV Q8H PRN PRN Reason: Pain or Fever Stop: 06/20/18 21:15 Calcium Carbonate (Tums) 500 mg PO Q4 PRN PRN Reason: Indigestion Stop: 06/21/18 16:56 Last Admin: 05/24/18 15:22 Dose: 500 mg Docusate Sodium (Colace) 100 mg PO BID NEHA Stop: 06/21/18 10:59 Last Admin: 05/24/18 09:34 Dose: 100 mg Heparin Sodium (Porcine) (Heparin Sodium (Porcine)) 5,000 units SQ Q12 NEHA Stop: 06/20/18 23:14 Last Admin: 05/24/18 09:31 Dose: Not Given Heparin Sodium (Porcine) (Heparin Sod 100 Unit/Ml Flush) 5 ml FLUSH PRN PRN PRN Reason: Flush Stop: 06/21/18 00:44 Prochlorperazine 10 mg/ (Syringe) 10 mls @ 5 mls/min IV Q6H PRN PRN Reason: Nausea And Vomiting Stop: 06/20/18 21:15 Last Admin: 05/24/18 10:50 Dose: 5 mls/min Dextrose/Sodium Chloride (D5w And Nss) 1,000 mls @ 80 mls/hr IV .[id number] [facility] Stop: 06/20/18 22:14 Last Admin: 05/24/18 15:18 Dose: 80 mls/hr Ketorolac Tromethamine (Toradol) 15 mg IV Q6H PRN PRN Reason: Pain Stop: 05/26/18 22:46 Last Admin: 05/22/18 18:55 Dose: 15 mg Lactulose (Chronulac) 30 gm PO Q8 NEHA Stop: 06/21/18 13:59 Last Admin: 05/24/18 15:19 Dose: 30 gm Ondansetron HCl (Zofran) 4 mg IV Q6H PRN PRN Reason: NAUSEA/VOMITING Stop: 06/20/18 21:15 Last Admin: 05/24/18 07:00 Dose: 4 mg Ondansetron HCl (Zofran) 8 mg PO Q8H [facility] Stop: 06/21/18 15:59 Last Admin: 05/24/18 15:19 Dose: 8 mg Polyethylene Glycol (Miralax Powder Packet) 17 gm PO QID [facility] Stop: 06/21/18 12:59 Last Admin: 05/24/18 15:18 Dose: 17 gm Sennosides (Senokot) 8.6 mg PO BID [facility] Stop: 06/21/18 10:59 Last Admin: 05/24/18 09:34 Dose: 8.6 mg Sodium Biphosphate/Sodium Phosphate (Fleet Enema) 132 ml KS BID [facility] Stop: 06/21/18 11:59 Last Admin: 05/24/18 09:31 Dose: Not Given Tramadol HCl (Ultram) 100 mg PO Q6H NEHA Stop: 06/21/18 13:59 Last Admin: 05/24/18 15:18 Dose: 100 mg _ (1) Ovarian cancer Laterality: unspecified laterality Qualified Code(s): C56.9 - Malignant neoplasm of unspecified ovary
[2018-05-25] MEDS: ONDANSETRON 8 MG TABLET PO SCH ×3 (01:08→15:18)
[2018-05-25] MEDS: TRAMADOL HCL 50 MG TABLET PO SCH ×3 (01:08→14:01)
[2018-05-25] MEDS: D5W AND NSS 1,000 ML IV SCH (04:31)
[2018-05-25] MEDS: ONDANSETRON INJ 2 MG/ML 2 ML VIAL IV PRN ×2 (06:04→13:00)
[2018-05-25] MEDS: LACTULOSE SYRUP 30 GM/45 ML UDP PO SCH ×2 (06:04→13:59)
[2018-05-25] MEDS: CALCIUM CARBONATE 500 MG CHEWABLE TAB PO PRN ×3 (07:02→19:55)
--- NOTE | 2018-05-25 07:54 | XRay Report ---
XR KUB CLINICAL HISTORY: bowel obstruction COMPARISON STUDY: 05/23/2018 FINDINGS: There is persistent colonic distention with bowel loops measuring up to 7.2 cm. There is a paucity of bowel gas within the pelvis, secondary to the patient's known large pelvic mass. IMPRESSION: 1. Large pelvic mass 2. Colonic distention with a paucity of distal colonic gas. Electronically signed by: Leon Hernandez M.D. 05/25/2018 7:52 AM
--- NOTE | 2018-05-25 08:03 | Surgery Progress Note ---
Date of Service May 25, 2018 Assessment & Plan (1) Fecal impaction: 05/24/2018 Patient continues to move her bowels. Feeling much improved since admission. Dr. Van spoke with patient regarding surgical options. No decisions have been made at this time. General Surgery will continue to follow closely. 05/23/2018 Multiple bowel movements overnight Patient is now considering diverting colostomy. Dr. Van will discuss surgical options with patient tomorrow. All questions answered. 05/22/2018 72-year-old female with sigmoid obstruction secondary to enlarging ovarian mass resulting in fecal impaction. Patient seen and examined with Dr. Van. No indication for emergent surgical intervention. Patient reports that she would not want a colostomy if that would be indicated. GI consult placed by Dr. Raymond for possible colonic stent placement. General Surgery will continue to follow along closely. Please call with questions or concerns. Subjective states still having liquid bm yesterday had 1.5 liters of peritoneal fluid removed feels better states going to half-way today Physical Exam 2 Vital Signs (Past 24 Hours): Last Vital Signs Temp 36.5 C 05/25/18 06:54 Pulse 99 H 05/25/18 06:54 Resp 20 05/25/18 06:54 BP 131/69 05/25/18 06:54 Pulse Ox 96 05/25/18 06:54
[2018-05-25] MEDS: DOCUSATE SODIUM 100 MG CAP PO SCH (09:14)
[2018-05-25] MEDS: HEPARIN SOD 5,000 UNIT/0.5 ML VIAL SQ SCH (09:15)
[2018-05-25] MEDS: SOD PHOSPHATE/SOD BIPHOSPHATE ENEMA 132 ML BTL PR SCH (09:15)
[2018-05-25] MEDS: POLYETHYLENE (MIRALAX) 17 GM PACK PO SCH ×3 (09:15→17:33)
[2018-05-25] MEDS: SENNA 8.6 MG TAB PO SCH (09:16)
[2018-05-25] MEDS: PROCHLORPERAZINE 10 MG in SYRINGE 8 ML IV PRN (09:44)
[2018-05-25] MEDS ORDERED: fentaNYL 12 MCG/HR TDSY TD SCH (15:30)
[2018-05-25] MEDS ORDERED: CHECK FENTANYL PATCH PLACEMENT SCH (16:00)
--- NOTE | 2018-05-30 10:54 | Discharge Summary ---
Date of Service May 25, 2018 Admission HPI Per Admitting Provider The patient is a 72-year-old female with a past medical history significant for ovarian cancer, who presents to the emergency department with no bowel movement over the past 7 days, increasing abdominal distention and pain, with decreasing intake of foods and liquids. She has been given MiraLAX and enemas for constipation without improvement. She was seen by her hospice nurse earlier in the day, and advised to come to the ED for assessment. She reports that she had fluid taken out of her abdomen 4 days ago and was told that time that her bowels were full. Admission Exam Per Admitting Provider The patient is awake, alert and oriented 3, looks emaciated, normocephalic and atraumatic, lying in bed and in no acute distress. HEENT--PERRL, EOMI, mucous membranes and oropharynx dry. Neck--supple. No JVD. No bruits. Thyroid normal, trachea midline, no adenopathy. Heart--normal S1 and S2. No murmurs, rubs or gallops. Lungs--clear bilaterally, no respiratory distress, no accessory muscle use. Abdomen--decreased bowel sounds. Mildly distended. Nontender. No rebound. Extremities--1-2+ bilateral pretibial pitting edema. There are good distal pulses b/l. Dermatologic--normal skin turgor, normal color, no abnormal lymph nodes, no rash. Neurologic--cranial nerves II through XII grossly intact. Rheumatologic--normal range of motion. Psychiatric--normal affect. Principal Diagnosis Metastatic ovarian cancer Discharge Exam Constitutional WD/WN, vitals as above Neck trachea midline, no thyromegaly Respiratory normal respiratory effort, lungs clear to auscultation Cardiovascular RRR, no murmur, no edema Gastrointestinal (Abdomen) Inspection/Auscultation: + abdomen distended (less than the day prior) and normal bowel sounds Percussion/Palpation: + abdomen tender (diffuse) and abdomen soft; no guarding, abdomen not rigid and no hepatosplenomegaly Musculoskeletal no cyanosis or clubbing, extremities motor strength 5/5 Skin no rashes, warm and dry Neurologic patellar DTR's 2+ bilat, sensation intact and PERRL, EOMI, accommodation nl, no face palsy, no dysarthria Psychiatric A+Ox3, euthymic affect Lymphatic no cervical or axillary lymphadenopathy Discharge Data Allergies Allergy/AdvReac Type Severity Reaction Status Date / Time Penicillins Allergy Mild ARM Verified 05/17/18 13:00 SWELLED UP Consultations 05/21/18 18:51 ED Decision to Admit Stat 05/21/18 21:16 Consult Case Management - Discharge Planning Routine Consult Gastroenterology Stat Consult General Surgery Routine Consult Hematology Routine Ordered Studies 05/21/18 17:21 CT abd pelvis wo con Stat 05/24/18 09:49 US paracentesis abd w/image Routine Hospital Course (1) Fecal impaction: Ovarian mass causing sigmoid obstruction, fecal impaction-- patient continues to have some intermittent loose stools several long discussions during the admission, there are no good options colonic stent not possible, diverting colostomy would not help, not probable due to ascites will need to continue bowel regimen and hope she continues to have liquid stools she plans to maintain liquid diet discussed that at some point she will become completely obstructed will focus on comfort at that time (2) Ovarian cancer: follows with Dr. Gordon has been on hospice for some time Patient has requested to be DNR/DNI, and a POLST form has been completed at this time. plan to continue hospice at SNF, she understands she needs more help tumors causing malignant ascites and colonic obstruction Fentanyl patch 12mcg started for continuous pain relief continue to use Ultram 100mg PRN should only return to hospital if she cannot be comfortable at SNF (3) Hyponatremia: resolved (4) Malignant ascites: therapeutic paracentesis on for only 1.5 liters not sure if it would be reasonable to continue to bring patient in for taps Total Time Total Time Spent Total Time Spent (In Minutes): 40 minutes Total Time Includes: Examination of the Patient, Discharge Planning, Medication Reconciliation, Communication With Other Providers (Dr. Pichardo) and Other ( discussion with patient's POA) Discharge Plan Discharge Items Patient Disposition: [facility] Prison Reason For Visit: OVARIAN MASS CAUSING SIGMOID COMPRESSION Discharge Diagnosis: Ovarian mass causing sigmoid compression, resolved Malignant ascites Condition: Fair Discharge Goals: Decrease discomfort and Specific goals Specific Goals: palliative care, hospice Activity: Resume your previous activity Non-emergency contact: Primary Care Provider Call non-emergency contact if: you have any medication questions, your symptoms worsen, your pain is not controlled and you have a fever Diet: Full liquid Addtl Provider Instructions: Medications: - FENTANYL PATCH: 12mcg patch, change every three days, next change will be on - COLACE and SENOKOT: take each twice a day as part of bowel regimen - MIRALAX: take twice a day scheduled to keep bowels moving, can increase to three times a day if needed Colonic obstruction and fecal impaction continue aggressive bowel regimen to keep stools moving increase Miralax if needed, try to move bowels once a day at least recommend full liquid diet, avoid fiber as this would be more likely to get obstructed as we have discussed, at some point the mass will completely obstruct the colon can use suppository or enema if tolerated Ovarian cancer with local and distant metastatic disease treat pain with Fentanyl patch 12mcg and Ultram disease has reached terminal stage, no further treatment per Dr. Gordon utilize hospice resources at assisted living facility FOLLOW UP - hospice services at assisted living goal is to remain at assisted living, try to control symptoms of nausea and pain out of hospital if pain cannot be controlled can always return to hospital for symptom relief Prescriptions: New fentanyl 12 mcg/hr Patch 72 Hour 12 mcg Transdermal Q3D 15 Days Qty: 5 RF: 0 polyethylene glycol 3350 [Miralax] 17 gram Powder In Packet 17 g PO BID Qty: 100 RF: 0 calcium carbonate [Tums] 200 mg calcium (500 mg) Tablet,Chewable 500 mg PO Q4 PRN (Reason: dyspepsia) 30 Days Qty: 60 RF: 0 docusate sodium 100 mg Capsule 100 mg PO BID 30 Days Qty: 60 RF: 0 sennosides [Senokot] 8.6 mg Tablet 8.6 mg PO BID 30 Days Qty: 60 RF: 0 Continue metoprolol succinate 25 mg tablet extended release 24 hr 25 mg PO QAM RF: 0 melatonin 1 mg Tablet 1 mg PO HS RF: 0 ondansetron HCl 8 mg tablet 8 mg PO TID RF: 0 dexlansoprazole 60 mg capsule,biphase delayed releas 60 mg PO QAM RF: 0 tramadol 50 mg tablet 100 mg PO Q6H 30 Days Qty: 240 RF: 0 Discontinued lactobacillus combination no.4 [Probiotic] 3 billion cell Capsule 3,000 mmu cells PO TIDM RF: 0 Stand-Alone Forms: [facility] Discharge Orders: Discharge Order (Routine); Ordered 05/25/18 Ordered By: Chase Shaw Admission Data Admit Date/Time: 05/21/18 20:02 Attending Provider: Chase Shaw Admit Provider: Fawad Raymond Primary Care Provider: Rom Thornton Other Providers: Brian Van ; Freddy Gordon ; Aamir Osuna Service: Oncology Other Interventions: Discharge Summary Assessment (RN) Last Done: 05/25/18 14:49 Pending Studies at Discharge: No DC Date/Time DO NOT enter until pt leaves facility: 05/25/18 20:44
== END 2018-05-25 20:44 | disposition hospice, inpatient (51) | DRG 755 ==
LOC: ED 17:07 → 4E 20:02 → SUATTDRO 20:02 → 4E 21:05